=== PATIENT | female | born 1960 | race Two or more races ===

== ENCOUNTER 2016-07-26 14:15 | Inpatient (IN) | payer MEDICARE, OTHER ==
[~2016-07-26] VITALS: Ht 165.1 cm; Wt 59.0 kg
--- NOTE | 2016-07-26 14:57 | Emergency Room Report ---
History of Present Illness General Chief Complaint: Generalized Weakness Source: Patient, EMS, PMD Present Illness HPI 55 YOF BIBEMS from SNF for alleged 30-40lb unintentional weight loss in 1 month. SNF endorses patient refusing to eat. PMD states patient is also refusing to eat. Patient states she eats 2x a day but doesnt get fed in evening. She otherwise denies loss of appetite, abd pain, nausea/vomiting, diarrhea. Per RN, patient has loose yellow stool. Sample collected. Patient not providing additional HPI, flat psych affect. Allergies: Coded Allergies: CODEINE (Verified Allergy, Unknown, 07/26/16) Patient History Past Medical History: DM, HTN, psych hx Past Surgical History: unable to obtain Pertinent Family History: unable to obtain Social History: Denies: alcohol use, drug use, smoking Now: No Immunizations: UTD Reviewed Nursing Documentation: PMH: Agreed, PSxH: Agreed Nursing Documentation-PMH Past Medical History: No History, Except For Hx Hypertension: Yes Hx COPD: Yes Hx Diabetes: Yes History Of Psychiatric Problem: Yes - bipolar schizophrenia Hx Neurological Problems: Yes - dementia Hx Seizures: Yes Review of Systems All Other Systems: negative except mentioned in HPI Physical Exam Vital Signs Date Time Temp Pulse Resp B/P Pulse Ox O2 Delivery O2 Flow Rate FiO2 07/26/16 14:15 98.1 102 14 121/75 97 Room Air Sp02 EP Interpretation: reviewed, normal General Appearance: normal inspection, well appearing, no apparent distress, alert, GCS 15, non-toxic Head: normocephalic, atraumatic Eyes: bilateral eye EOMI, bilateral eye PERRL ENT: normal ENT inspection, hearing grossly normal, normal voice Neck: normal inspection, full range of motion, supple, no bony tend Respiratory: normal inspection, lungs clear, normal breath sounds, no rhonchi, no respiratory distress, no retraction, no accessory muscle use, no wheezing Cardiovascular #1: regular rate, rhythm, no edema Gastrointestinal: normal inspection, normal bowel sounds, non tender, soft, no mass, no guarding, no hernia, no pulsatile mass, no rebound Genitourinary: no CVA tenderness Musculoskeletal: normal inspection, back normal, normal range of motion, Savanna' s Sign negative Neurologic: normal inspection, alert, oriented x3, responsive, report manager III-XII nml as tested, motor strength/tone normal, speech normal Psychiatric: normal inspection, other - flat affect, staring straight ahead Skin: normal inspection, normal color, no rash Medical Decision Making Diagnostic Impression: Primary Impression: Episode of generalized weakness Additional Impressions: Weight loss, non-intentional UTI (urinary tract infection) Qualified Codes: N30.00 - Acute cystitis without hematuria ER Course 55 YO F with alleged 30-40lb weight loss, ?diarrhea. VSS. Afebrile. No focal abd ttp. DDx: colitis, ?Cdiff although unlikely, UTI, PNA PLAN: Labs, CTAP, reassess Likely admission for weakness EKG Diagnostic Results Rate: tachycardiac Rhythm: NSR ST Segments: no acute changes ASA given to the pt in ED: No Rhythm Strip Diag. Results EP Interpretation: yes Rate: 102 Rhythm: NSR, no PVC's, no ectopy Chest X-Ray Diagnostic Results EP Interpretation: Yes Findings: no consolidation, no effusion, no pneumothorax, no acute cardiopulmonary disease Number of Views: 1 Reevaluation Time: 15:38 Last Vital Signs Date Time Temp Pulse Resp B/P Pulse Ox O2 Delivery O2 Flow Rate FiO2 07/26/16 14:15 98.1 102 14 121/75 97 Room Air Status: improved Reevaluation Impression Labs: No leuks. H&H stable. No sig metabolic abnormality. UA + for nitrites CXR: No PNA or acute abnormality seen ECG is NSR, no ischemia A: Will give Ceftriaxone for UTI, as likely source of weakness, decreased appetite, weight loss Endorsed to Dr Morales at 339pm Disposition: ADMITTED INPATIENT Condition: Serious Referrals: RAMONA MORALES (PCP) CARTER WEST M.D. Jul 26, 2016 14:57
[2016-07-26 15:15] VITALS: BP 121/75
[2016-07-26 15:18] LABS: APPEARANCE,URINE CLEAR; KETONES,URINE NEGATIVE (NEGATIVE); LEUKOCYTE ESTERASE ,URINE 3+ (NEGATIVE); NITRITE,URINE POSITIVE (NEGATIVE); PH,URINE 6 (4.5-8.0); PROTEIN,URINE NEGATIVE (NEGATIVE); TROPONIN I < 0.30 ng/mL (<=0.30); UROBILINOGEN,URINE NORMAL MG/DL (0.0-1.0)
[2016-07-26 15:22] LABS: ALANINE AMINOTRANSFERASE 10 U/L (3-33); ALBUMIN/GLOBULIN RATIO 1.4 (1.0-2.7); ANION GAP 14 (5-15); ASPARTATE AMINO TRANSFERASE 13 U/L (5-40); CALCIUM 9.6 mg/dL (8.6-10.2); CARBON DIOXIDE 28 mEQ/L (20-30); CHLORIDE 96 mEQ/L (98-107); CREATININE 0.7 mg/dL (0.5-0.9); GLOMERULAR FILTRATION RATE > 60 mL/min (>60); HEMOLYSIS 25; POTASSIUM 4.2 mEQ/L (3.4-4.9); SODIUM 138 mEQ/L (135-145); TOTAL PROTEIN 7.2 g/dL (6.6-8.7)
[2016-07-26 15:24] LABS: EOSINOPHILS % (AUTO) 0.9 % (0.0-3.0); LYMPHOCYTES % (AUTO) 21.4 % (20.0-45.0); MEAN CORPUSCULAR HEMOGLOBIN 32.4 PG (27.0-31.0); MEAN CORPUSCULAR HGB CONC 34.8 G/DL (32.0-36.0); MEAN CORPUSCULAR VOLUME 93 FL (80-99); MEAN PLATELET VOLUME 6.1 FL (6.5-10.1); NEUTROPHILS % (AUTO) 68.7 % (45.0-75.0); PLATELET COUNT 286 K/UL (150-450); RED BLOOD COUNT 4.87 M/UL (4.20-5.40); WHITE BLOOD COUNT 7.6 K/UL (4.8-10.8)
[2016-07-26] MEDS ORDERED: cefTRIAXone 1 GM in NS 55 ML IVPB SCH (15:30)
[2016-07-26 15:33] LABS: CKMB 1.7 ng/mL (< 3.8)
--- NOTE | 2016-07-26 15:38 | Infectious Diseases Prog Note ---
Assessment/Plan Problems: (1) UTI (urinary tract infection) Assessment & Plan: will send culture and start ceftriaxon empiricaly (2) Diarrhea Assessment & Plan: rule out infectious etiology, will send stool for culture and C.diff toxin, and start metronidazole and ceftriaxone empirically (3) Weight loss, non-intentional Assessment & Plan: recommend TSH check and HIV screening, and dietary consult (4) Episode of generalized weakness Assessment & Plan: suspect due to the above Subjective Allergies: Coded Allergies: CODEINE (Verified Allergy, Unknown, 07/26/16) Objective Vital Signs Last 24 Hour Vital Signs Date Time Temp Pulse Resp B/P Pulse Ox O2 Delivery O2 Flow Rate FiO2 07/26/16 14:15 98.1 102 14 121/75 97 Room Air Height (Feet): 5 Height (Inches): 5.00 Weight (Pounds): 130 Laboratory Tests Test 07/26/16 14:30 White Blood Count 7.6 K/UL (4.8-10.8) Red Blood Count 4.87 M/UL (4.20-5.40) Hemoglobin 15.8 G/DL (12.0-16.0) Hematocrit 45.3 % (37.0-47.0) Mean Corpuscular Volume 93 FL (80-99) Mean Corpuscular Hemoglobin 32.4 PG (27.0-31.0) H Mean Corpuscular Hemoglobin Concent 34.8 G/DL (32.0-36.0) Red Cell Distribution Width 12.0 % (11.6-14.8) Platelet Count 286 K/UL (150-450) Mean Platelet Volume 6.1 FL (6.5-10.1) L Neutrophils (%) (Auto) 68.7 % (45.0-75.0) Lymphocytes (%) (Auto) 21.4 % (20.0-45.0) Monocytes (%) (Auto) 8.0 % (1.0-10.0) Eosinophils (%) (Auto) 0.9 % (0.0-3.0) Basophils (%) (Auto) 1.0 % (0.0-2.0) Urine Color Yellow Urine Appearance Clear Urine pH 6 (4.5-8.0) Urine Specific [place] 1.020 (1.005-1.035) Urine Protein Negative (NEGATIVE) Urine Glucose (UA) Negative (NEGATIVE) Urine Ketones Negative (NEGATIVE) Urine Occult Blood 1+ (NEGATIVE) H Urine Nitrite Positive (NEGATIVE) H Urine Bilirubin Negative (NEGATIVE) Urine Urobilinogen Normal MG/DL (0.0-1.0) Urine Leukocyte Esterase 3+ (NEGATIVE) H Urine RBC Pending Urine WBC Pending Urine Squamous Epithelial Cells Pending Urine Bacteria Pending Sodium Level 138 mEQ/L (135-145) Potassium Level 4.2 mEQ/L (3.4-4.9) Chloride Level 96 mEQ/L (98-107) L Carbon Dioxide Level 28 mEQ/L (20-30) Anion Gap 14 (5-15) Blood Urea Nitrogen 14 mg/dL (7-23) Creatinine 0.7 mg/dL (0.5-0.9) Estimat Glomerular Filtration Rate > 60 mL/min (>60) Glucose Level 153 mg/dL (74-106) H Calcium Level 9.6 mg/dL (8.6-10.2) Total Bilirubin 0.2 mg/dL (0.0-1.2) Aspartate Amino Transf (AST/SGOT) 13 U/L (5-40) Alanine Aminotransferase (ALT/SGPT) 10 U/L (3-33) Alkaline Phosphatase 60 U/L (35-104) Total Creatine Kinase 21 U/L (26-140) L Creatine Kinase MB 1.7 ng/mL (< 3.8) Creatine Kinase MB Relative Index 8.0 Troponin I < 0.30 ng/mL (<=0.30) Total Protein 7.2 g/dL (6.6-8.7) Albumin 4.3 g/dL (3.5-5.2) Globulin 2.9 g/dL Albumin/Globulin Ratio 1.4 (1.0-2.7) Alyssa Blanton M.D. Jul 26, 2016 15:38
[2016-07-26 15:40] LABS: BACTERIA,URINE MANY /HPF; SQUAMOUS EPITHELIAL CELL,UR FEW /LPF (NONE/OCC)
[2016-07-26] MEDS ORDERED: cefTRIAXone 1 GM in NS 55 ML IVPB ONE (15:45)
[2016-07-26] MEDS ORDERED: RISPERDAL2 MG ORAL (15:49)
[2016-07-26] MEDS ORDERED: DEPAKOTE250 MG PO (15:49)
[2016-07-26] MEDS ORDERED: FOLIC ACID1 MG ORAL (15:49)
[2016-07-26] MEDS ORDERED: MULTIVITAMINS1 EAC2 ORAL (15:49)
[2016-07-26] MEDS ORDERED: GLUCAGON W/DILUE1 MG IM (15:49)
[2016-07-26] MEDS ORDERED: METFORMIN HCL500 M1 ORAL (15:49)
[2016-07-26] MEDS ORDERED: LAMICTAL25 MG ORAL (15:49)
[2016-07-26] MEDS ORDERED: NOVOLOG100 UNITS1 SQ (17:25)
[2016-07-26] MEDS ORDERED: CLOTRIMAZOLE15 GM TOPIC (17:25)
--- NOTE | 2016-07-26 18:43 | Wound Care Consultation ---
Wound Assessment Wound Assessment #1: Wound Present on Admission: Yes New Wound: No Status Change of Wound: No Wound Location Body Site Modif: right Wound Location Body Site: buttocks Wound Type: pressure ulcer Saadia Test: Does not Saadia Pressure Ulcer Stage: IV/unstageable Wound Thickness: Full Thickness Wound Length: 3.0 Wound Width: 4.0 Wound Depth: 0.5 Percent of Wound [place]/Red: 100 Wound Drainage Description: Serosanguineous Wound Drainage Amount: Moderate Wound Drainage Odor: None/Absent Tissue Surrounding Wound: Erythemic Wound General Appearance: Reddened, Draining Wound Assessment #2: Wound Number: #2 Wound Present on Admission: Yes New Wound: No Status Change of Wound: No Wound Location Body Site Modif: left, upper Wound Location Body Site: back Wound Type: pressure ulcer Saadia Test: Does not Saadia Pressure Ulcer Stage: deep tissue injury Wound Thickness: Full Thickness Wound Length: 4.0 Wound Width: 4.0 Wound Depth: utd Percent of Wound Purple/Maroon: 100 Wound Drainage Amount: None Wound Drainage Odor: None/Absent Tissue Surrounding Wound: Intact Wound General Appearance: Asymptomatic, Reddened Wound Comment #1 Right buttocks stage IV pressure ulcer. Up on palpation of the affected area , noted a hard oval shaped object on the right buttock. Pt stated there is a device planted for her back problem. #2 Left upper back DTI purple in color Recommendation Right buttock - cleanse with saline apply hydrogel on wound bed cover with calcium alginate cover with bordered gauze daily and PRN soiled/dislodged Left upper back DTI -Local wound care per protocol for DTI -Low air loss overlay mattress -Turn and reposition -Keep clean and dry -Optimize nutrition -Assess and f/u accordingly for any changes ISMAEL URBINA RN Jul 26, 2016 18:43
[2016-07-26 19:00] VITALS: BP 152/87
[2016-07-26] MEDS ORDERED: Mylanta II UD 30ml ORAL PRN (19:15)
[2016-07-26] MEDS ORDERED: LORazepam Inj 2mg/ml 1ml IV PRN (19:15)
[2016-07-26] MEDS ORDERED: Zolpidem 5mg tab ORAL PRN (19:15)
[2016-07-26] MEDS ORDERED: Miralax 17gm pkt ORAL PRN (19:15)
--- NOTE | 2016-07-26 19:15 | Consultation ---
History of Present Illness General Date patient seen: Jul 26, 2016 Chief Complaint: Generalized Weakness Present Illness HPI 55 with hx of Dementia, seizures, DM, COPd,long term resident brought in for alleged 30-40lb unintentional weight loss in 1 month. It is reported that pt refusing to eat. Patient states she eats 2x a day but doesnt get fed in evening. She otherwise denies loss of appetite, abd pain, nausea/vomiting, diarrhea. She is admitted for further evaluation and intervention. she had a cloudy urine, it was thought that she had urosepsis. Allergies: Coded Allergies: CODEINE (Verified Allergy, Unknown, 07/26/16) Medication History Scheduled Clotrimazole* (Lotrimin*), 1 APPLIC TOPIC DAILY, (Reported) Divalproex Sodium* (Depakote*), 750 MG PO TWICE A DAY, (Reported) Folic Acid* (Folic Acid*), 1 MG ORAL DAILY, (Reported) Insulin Aspart (Novolog Flexpen), SQ AC+HS, (Reported) Lamotrigine* (Lamictal*), 25 MG ORAL TWICE A DAY, (Reported) Metformin Hcl* (Metformin Hcl*), 500 MG ORAL DAILY, (Reported) Multivitamins* (Multivitamins*), 1 TAB ORAL DAILY, (Reported) Risperidone* (Risperdal*), 3 MG ORAL TWICE A DAY, (Reported) Scheduled PRN Glucagon (Glucagen), 1 MG IM for hypoglycemic, (Reported) Patient History Healthcare decision maker Resuscitation status Advanced Directive on File Past Medical/Surgical History Past Medical/Surgical History: (1) prison pneumonia (2) Depression (3) Diabetic polyneuropathy Review of Systems All Other Systems: negative except mentioned in HPI Physical Exam Lines, tubes and drains: peripheral HEENT: normocephalic Neck: non-tender, supple Respiratory/Chest: chest wall non-tender, lungs clear Cardiovascular/Chest: normal peripheral pulses, normal rate Abdomen: normal bowel sounds, non tender Last 24 Hour Vital Signs Date Time Temp Pulse Resp B/P Pulse Ox O2 Delivery O2 Flow Rate FiO2 07/26/16 17:11 95 11 110/73 98 Room Air 07/26/16 15:15 97.2 103 15 121/75 98 Room Air 07/26/16 14:15 98.1 102 14 121/75 97 Room Air Laboratory Tests Test 07/26/16 14:30 White Blood Count 7.6 K/UL (4.8-10.8) Red Blood Count 4.87 M/UL (4.20-5.40) Hemoglobin 15.8 G/DL (12.0-16.0) Hematocrit 45.3 % (37.0-47.0) Mean Corpuscular Volume 93 FL (80-99) Mean Corpuscular Hemoglobin 32.4 PG (27.0-31.0) H Mean Corpuscular Hemoglobin Concent 34.8 G/DL (32.0-36.0) Red Cell Distribution Width 12.0 % (11.6-14.8) Platelet Count 286 K/UL (150-450) Mean Platelet Volume 6.1 FL (6.5-10.1) L Neutrophils (%) (Auto) 68.7 % (45.0-75.0) Lymphocytes (%) (Auto) 21.4 % (20.0-45.0) Monocytes (%) (Auto) 8.0 % (1.0-10.0) Eosinophils (%) (Auto) 0.9 % (0.0-3.0) Basophils (%) (Auto) 1.0 % (0.0-2.0) Urine Color Yellow Urine Appearance Clear Urine pH 6 (4.5-8.0) Urine Specific [place] 1.020 (1.005-1.035) Urine Protein Negative (NEGATIVE) Urine Glucose (UA) Negative (NEGATIVE) Urine Ketones Negative (NEGATIVE) Urine Occult Blood 1+ (NEGATIVE) H Urine Nitrite Positive (NEGATIVE) H Urine Bilirubin Negative (NEGATIVE) Urine Urobilinogen Normal MG/DL (0.0-1.0) Urine Leukocyte Esterase 3+ (NEGATIVE) H Urine RBC 2-4 /HPF (0 - 2) H Urine WBC 5-10 /HPF (0 - 2) H Urine Squamous Epithelial Cells Few /LPF (NONE/OCC) Urine Bacteria Many /HPF (NONE) H Sodium Level 138 mEQ/L (135-145) Potassium Level 4.2 mEQ/L (3.4-4.9) Chloride Level 96 mEQ/L (98-107) L Carbon Dioxide Level 28 mEQ/L (20-30) Anion Gap 14 (5-15) Blood Urea Nitrogen 14 mg/dL (7-23) Creatinine 0.7 mg/dL (0.5-0.9) Estimat Glomerular Filtration Rate > 60 mL/min (>60) Glucose Level 153 mg/dL (74-106) H Calcium Level 9.6 mg/dL (8.6-10.2) Total Bilirubin 0.2 mg/dL (0.0-1.2) Aspartate Amino Transf (AST/SGOT) 13 U/L (5-40) Alanine Aminotransferase (ALT/SGPT) 10 U/L (3-33) Alkaline Phosphatase 60 U/L (35-104) Total Creatine Kinase 21 U/L (26-140) L Creatine Kinase MB 1.7 ng/mL (< 3.8) Creatine Kinase MB Relative Index 8.0 Troponin I < 0.30 ng/mL (<=0.30) Total Protein 7.2 g/dL (6.6-8.7) Albumin 4.3 g/dL (3.5-5.2) Globulin 2.9 g/dL Albumin/Globulin Ratio 1.4 (1.0-2.7) Height (Feet): 5 Height (Inches): 5.00 Weight (Pounds): 130 Medications Current Medications Medications (Trade) Dose Ordered Sig/Rene Route PRN Reason Start Time Stop Time Status Last Admin Dose Admin Ceftriaxone Sodium/Sodium Chloride (Rocephin/Sodium Chloride) 55 ml @ 110 mls/hr Q24HRS IVPB 07/27/16 15:00 08/03/16 14:59 Metronidazole 500 mg 500 mg Q6HR ORAL 07/26/16 18:00 08/02/16 17:59 Assessment/Plan Problem List: (1) UTI (urinary tract infection) ICD Codes: N39.0 - Urinary tract infection, site not specified SNOMED: 80235204 Qualifiers: Qualified Codes: N30.00 - Acute cystitis without hematuria (2) Episode of generalized weakness ICD Codes: R53.1 - Weakness SNOMED: 25999028 (3) Diabetic polyneuropathy (4) nonambulatory, r/o spinal stenosis, r/o psychosomatic d/o (5) prison pneumonia ICD Codes: J18.9 - Pneumonia, unspecified organism SNOMED: 116881801 (6) Depression ICD Codes: F32.9 - Major depressive disorder, single episode, unspecified SNOMED: 61057661 Assessment/Plan IV fluids IV antibiotics check cultures calorie count RC PADILLA Jul 26, 2016 19:15
[2016-07-26] MEDS: metroNIDAZOLE 500mg tab ORAL SCH (19:16)
[2016-07-26 20:00] VITALS: BP 140/82
[2016-07-26] MEDS ORDERED: Morphine Sulfate 2mg/ml Inj IVP PRN (20:15)
[2016-07-26] MEDS: Heparin 5000 units/ml inj SUBQ SCH (20:19)
[2016-07-26] MEDS: NovoLOG Insulin Flexpen SUBQ SCH (21:00)
--- NOTE | 2016-07-26 21:27 | Consultation ---
DATE OF CONSULTATION: INFECTIOUS DISEASE CONSULTATION CONSULTING PHYSICIAN: Alyssa Blanton M.D. REQUESTING PHYSICIAN: Sergio Negron D.O. REASON FOR CONSULTATION: Urinary tract infection and diarrhea. Recommendation for antibiotics therapy. HISTORY OF PRESENT ILLNESS: The patient is a 55-year-old female with past medical history of diabetes, hypertension, and psych disorder, who was sent to [facility] for diarrhea and an intentional weight loss of about 30 pounds. Over the last couple of weeks, the patient has been refusing to eat. She denied any abdominal pain, nausea, or vomiting. Denied any loss of appetite, but she had diarrhea and loose stools. No blood or hematochezia. She denied any other symptoms. The patient had urine analysis in the emergency room, which showed evidence of infection, so I was consulted by the primary care physician for antibiotics recommendation and further management. As of note, the patient is a poor historian and could not provide good history. History was mainly obtained from the medical record and partially from the patient. PAST MEDICAL HISTORY: Significant for diabetes, hypertension, and psych disorder. PAST SURGICAL HISTORY: Negative. MEDICATIONS: She is on diabetes and hypertension medications. For the list, please refer to the MAR. ALLERGIES: She is allergic to codeine. SOCIAL HISTORY: The patient lives at rehabilitation. Denied using any drugs, tobacco, or alcohol. FAMILY HISTORY: Unable to obtain. REVIEW OF SYSTEMS: A 12-point system reviewed were all negative apart from the one I mentioned above in my History and Physical. PHYSICAL EXAMINATION: VITAL SIGNS: Temperature 98.1 degrees, pulse 102, respirations 14, blood pressure 121/75, and pulse oximetry 97% on room air. GENERAL: A middle-aged female, lying in bed, alert, awake, lethargic, and not in distress. HEENT: Normocephalic and atraumatic. Pupils are both reactive to light. Pale sclera. Dry oral mucosa. No exudate. NECK: Supple. No lymphadenopathy. CARDIOVASCULAR: Regular rate and rhythm. No murmur. No gallop. LUNGS: Clear bilaterally. No wheezing. No rhonchi. ABDOMEN: Soft, nontender, and nondistended. Positive bowel sounds. No hepatosplenomegaly or ascites. EXTREMITIES: No edema. No cyanosis. LABORATORY DATA: CBC showed white count of 7.6, hemoglobin of 15.8, and platelet count of 286,000. BUN of 14 and creatinine of 0.7. AST of 15, ALT of 10, and alkaline phosphatase of 60. Urine analysis was positive for nitrate and +3 leukocyte esterase with WBC and bacteria pending. ASSESSMENT AND PLAN: 1. Urinary tract infection. The patient will be started empirically on ceftriaxone. We will send urine for culture. Await results. 2. Diarrhea, rule out infectious etiology. We will send stool for culture and Clostridium difficile toxin. We will start Flagyl and ceftriaxone empirically. If infectious workup remain negative, recommend colonoscopy and GI consult. 3. Weight loss, unintentional. We will screen for human immunodeficiency virus and syphilis. Recommend TSH check and dietary consultation. 4. Generalized weakness, suspect due to the above. Consult PT or OT. 5. Diabetes. Recommend tight glycemic control to keep blood glucose between 80 to 120. Alyssa Blanton M.D. DR: CHRISTINA JOB#: [id number] CC:
--- NOTE | 2016-07-26 21:27 | History and Physical Report ---
DATE OF ADMISSION: 07/26/2016 Time: 3:00 p.m. CONSULTANTS: 1. Alyssa Blanton M.D. 2. Luke Waller M.D. 3. Ashley Ch M.D. 4. Truong Mckeon M.D. 5. Hay Stewart M.D. CHIEF COMPLAINT: Weakness and failure to thrive. HISTORY OF PRESENT ILLNESS: The patient is a 55-year-old female from [facility] presented with increased weakness for two and weight loss, failure to thrive, and encephalopathy. Currently, calm, confused, seen in bed, and not talking much. PAST MEDICAL HISTORY: Encephalopathy and weakness. PAST SURGICAL HISTORY: Unknown. MEDICATIONS: We will obtain shortly. ALLERGIES: Codeine. SOCIAL HISTORY: No smoking or alcohol. No intravenous drug abuse. FAMILY HISTORY: Noncontributory. REVIEW OF SYSTEMS: Slight nausea. No vomiting. No diarrhea. No chest pain or shortness of breath. PHYSICAL EXAMINATION: GENERAL: Lethargic in bed, oriented x1, in no acute distress. VITAL SIGNS: Temperature 98 degrees, pulse 102, respiration 14, and blood pressure 121/75. CARDIOVASCULAR: No murmur. LUNGS: Poor exchange. ABDOMEN: Positive bowel sounds. Nontender and nondistended. EXTREMITIES: No cyanosis, clubbing or edema. NEUROLOGIC: The patient moves all extremities, but slightly weak. LABORATORY DATA: Laboratory exams are pending. ASSESSMENT: 1. Weakness. 2. Failure to thrive. 3. Encephalopathy. 4. Weight loss. PLAN: Continue premedications. Check labs count if available. OT, PT, and dietary evaluation. CBC and BMP in the morning. IV fluids. Dr. Blanton, Dr. Waller, Dr. Ch, Dr. Mckeon, and Dr. Stewart to consult. Resume home medications. We will continue to follow this patient. Sergio Negron D.O. DR: Rafy JOB#: [id number] CC:
[2016-07-27] VITALS: BP 122/82
[2016-07-27] MEDS: metroNIDAZOLE 500mg tab ORAL SCH ×4 (00:16→18:17)
[2016-07-27 04:00] VITALS: BP 128/74
[2016-07-27] MEDS: NovoLOG Insulin Flexpen SUBQ SCH ×4 (05:52→21:43)
[2016-07-27 07:33] LABS: BASOPHILS % (AUTO) 0.7 % (0.0-2.0); EOSINOPHILS % (AUTO) 1.9 % (0.0-3.0); LYMPHOCYTES % (AUTO) 34.1 % (20.0-45.0); MEAN CORPUSCULAR HEMOGLOBIN 30.5 PG (27.0-31.0); MEAN CORPUSCULAR HGB CONC 33.5 G/DL (32.0-36.0); MEAN CORPUSCULAR VOLUME 91 FL (80-99); MEAN PLATELET VOLUME 5.6 FL (6.5-10.1); MONOCYTES % (AUTO) 8.9 % (1.0-10.0); NEUTROPHILS % (AUTO) 54.4 % (45.0-75.0); PLATELET COUNT 269 K/UL (150-450); RED BLOOD COUNT 4.69 M/UL (4.20-5.40); RED CELL DISTRIBUTION WIDTH 11.7 % (11.6-14.8); WHITE BLOOD COUNT 7.6 K/UL (4.8-10.8)
[2016-07-27 07:52] LABS: HEMOGLOBIN A1C 5.6 % (< 6.0)
[2016-07-27 07:57] LABS: ALANINE AMINOTRANSFERASE 9 U/L (3-33); ALBUMIN/GLOBULIN RATIO 1.5 (1.0-2.7); ANION GAP 14 (5-15); ASPARTATE AMINO TRANSFERASE 10 U/L (5-40); CALCIUM 9.5 mg/dL (8.6-10.2); CARBON DIOXIDE 28 mEQ/L (20-30); CHLORIDE 99 mEQ/L (98-107); CHOLESTEROL 167 mg/dL (< 200); CHOLESTEROL/HDL RATIO 2.8 (3.3-4.4); CREATININE 0.5 mg/dL (0.5-0.9); GLOMERULAR FILTRATION RATE > 60 mL/min (>60); HEMOLYSIS 4; LDL CHOLESTEROL (CALC.) 86 mg/dL (60-99); POTASSIUM 3.8 mEQ/L (3.4-4.9); SODIUM 141 mEQ/L (135-145); TOTAL PROTEIN 6.1 g/dL (6.6-8.7)
[2016-07-27 08:00] VITALS: BP 113/78
[2016-07-27] MEDS: Heparin 5000 units/ml inj SUBQ SCH ×2 (09:29→21:44)
[2016-07-27 12:00] VITALS: BP 108/69
--- NOTE | 2016-07-27 12:39 | Neurology Progress Note ---
Objective Physical Exam Last Vital Signs Date Time Temp Pulse Resp B/P Pulse Ox O2 Delivery O2 Flow Rate FiO2 07/27/16 08:00 97.0 85 18 113/78 98 Room Air Laboratory Tests Test 07/26/16 14:30 07/27/16 05:15 White Blood Count 7.6 K/UL (4.8-10.8) 7.6 K/UL (4.8-10.8) Red Blood Count 4.87 M/UL (4.20-5.40) 4.69 M/UL (4.20-5.40) Hemoglobin 15.8 G/DL (12.0-16.0) 14.3 G/DL (12.0-16.0) Hematocrit 45.3 % (37.0-47.0) 42.7 % (37.0-47.0) Mean Corpuscular Volume 93 FL (80-99) 91 FL (80-99) Mean Corpuscular Hemoglobin 32.4 PG (27.0-31.0) H 30.5 PG (27.0-31.0) Mean Corpuscular Hemoglobin Concent 34.8 G/DL (32.0-36.0) 33.5 G/DL (32.0-36.0) Red Cell Distribution Width 12.0 % (11.6-14.8) 11.7 % (11.6-14.8) Platelet Count 286 K/UL (150-450) 269 K/UL (150-450) Mean Platelet Volume 6.1 FL (6.5-10.1) L 5.6 FL (6.5-10.1) L Neutrophils (%) (Auto) 68.7 % (45.0-75.0) 54.4 % (45.0-75.0) Lymphocytes (%) (Auto) 21.4 % (20.0-45.0) 34.1 % (20.0-45.0) Monocytes (%) (Auto) 8.0 % (1.0-10.0) 8.9 % (1.0-10.0) Eosinophils (%) (Auto) 0.9 % (0.0-3.0) 1.9 % (0.0-3.0) Basophils (%) (Auto) 1.0 % (0.0-2.0) 0.7 % (0.0-2.0) Urine Color Yellow Urine Appearance Clear Urine pH 6 (4.5-8.0) Urine Specific [place] 1.020 (1.005-1.035) Urine Protein Negative (NEGATIVE) Urine Glucose (UA) Negative (NEGATIVE) Urine Ketones Negative (NEGATIVE) Urine Occult Blood 1+ (NEGATIVE) H Urine Nitrite Positive (NEGATIVE) H Urine Bilirubin Negative (NEGATIVE) Urine Urobilinogen Normal MG/DL (0.0-1.0) Urine Leukocyte Esterase 3+ (NEGATIVE) H Urine RBC 2-4 /HPF (0 - 2) H Urine WBC 5-10 /HPF (0 - 2) H Urine Squamous Epithelial Cells Few /LPF (NONE/OCC) Urine Bacteria Many /HPF (NONE) H Sodium Level 138 mEQ/L (135-145) 141 mEQ/L (135-145) Potassium Level 4.2 mEQ/L (3.4-4.9) 3.8 mEQ/L (3.4-4.9) Chloride Level 96 mEQ/L (98-107) L 99 mEQ/L (98-107) Carbon Dioxide Level 28 mEQ/L (20-30) 28 mEQ/L (20-30) Anion Gap 14 (5-15) 14 (5-15) Blood Urea Nitrogen 14 mg/dL (7-23) 10 mg/dL (7-23) Creatinine 0.7 mg/dL (0.5-0.9) 0.5 mg/dL (0.5-0.9) Estimat Glomerular Filtration Rate > 60 mL/min (>60) > 60 mL/min (>60) Glucose Level 153 mg/dL (74-106) H 107 mg/dL (74-106) H Calcium Level 9.6 mg/dL (8.6-10.2) 9.5 mg/dL (8.6-10.2) Total Bilirubin 0.2 mg/dL (0.0-1.2) 0.3 mg/dL (0.0-1.2) Aspartate Amino Transf (AST/SGOT) 13 U/L (5-40) 10 U/L (5-40) Alanine Aminotransferase (ALT/SGPT) 10 U/L (3-33) 9 U/L (3-33) Alkaline Phosphatase 60 U/L (35-104) 51 U/L (35-104) Total Creatine Kinase 21 U/L (26-140) L Creatine Kinase MB 1.7 ng/mL (< 3.8) Creatine Kinase MB Relative Index 8.0 Troponin I < 0.30 ng/mL (<=0.30) Total Protein 7.2 g/dL (6.6-8.7) 6.1 g/dL (6.6-8.7) L Albumin 4.3 g/dL (3.5-5.2) 3.7 g/dL (3.5-5.2) Globulin 2.9 g/dL 2.4 g/dL Albumin/Globulin Ratio 1.4 (1.0-2.7) 1.5 (1.0-2.7) Hemoglobin A1c 5.6 % (< 6.0) Triglycerides Level 107 mg/dL (< 150) Cholesterol Level 167 mg/dL (< 200) LDL Cholesterol 86 mg/dL (60-99) HDL Cholesterol 60 mg/dL (> 60) Cholesterol/HDL Ratio 2.8 (3.3-4.4) L Thyroid Stimulating Hormone (TSH) 2.550 uIU/mL (0.300-4.500) Impression/Recommendations Problems: (1) nonambulatory, r/o spinal stenosis, r/o psychosomatic d/o (2) Action tremor (3) Diabetic polyneuropathy Status: unchanged - #[id number] Recommendations #[id number] ADRIANA BERUMEN Jul 27, 2016 12:39
--- NOTE | 2016-07-27 13:23 | General Progress Note ---
Assessment/Plan Problem List: (1) FTT (failure to thrive) in adult ICD Codes: R62.7 - Adult failure to thrive SNOMED: 828507255 (2) UTI (urinary tract infection) ICD Codes: N39.0 - Urinary tract infection, site not specified SNOMED: 38140708 Qualifiers: Qualified Codes: N30.00 - Acute cystitis without hematuria (3) Episode of generalized weakness ICD Codes: R53.1 - Weakness SNOMED: 92138007 (4) Weight loss, non-intentional ICD Codes: R63.4 - Abnormal weight loss SNOMED: 880512344 Status: stable, progressing, tolerating diet Assessment/Plan ot pt diet psyc tx abx cbc bmp am Subjective Constitutional: Reports: weakness Allergies: Coded Allergies: CODEINE (Verified Allergy, Unknown, 07/26/16) All Systems: reviewed and negative except above Subjective calm in bed weak Objective Last 24 Hour Vital Signs Date Time Temp Pulse Resp B/P Pulse Ox O2 Delivery O2 Flow Rate FiO2 07/27/16 08:00 97.0 85 18 113/78 98 Room Air 07/27/16 04:00 96.6 79 20 128/74 97 Room Air 07/27/16 00:00 97.2 87 20 122/82 98 Room Air 07/26/16 20:00 98.2 98 20 140/82 98 Room Air 07/26/16 19:00 97.3 100 20 152/87 98 Room Air 07/26/16 17:11 95 11 110/73 98 Room Air 07/26/16 15:15 97.2 103 15 121/75 98 Room Air 07/26/16 14:15 98.1 102 14 121/75 97 Room Air Intake and Output 07/26/16 07/27/16 19:00 07:00 Intake Total 355 ml 240 ml Output Total 900 ml Balance 355 ml -660 ml Intake Oral 300 ml 240 ml IV Total 55 ml Output Urine Total 900 ml # Bowel Movements 1 2 Laboratory Tests 07/26/16 14:30: White Blood Count 7.6, Red Blood Count 4.87, Hemoglobin 15.8, Hematocrit 45.3, Mean Corpuscular Volume 93, Mean Corpuscular Hemoglobin 32.4H, Mean Corpuscular Hemoglobin Concent 34.8, Red Cell Distribution Width 12.0, Platelet Count 286, Mean Platelet Volume 6.1L, Neutrophils (%) (Auto) 68.7, Lymphocytes (%) (Auto) 21.4, Monocytes (%) (Auto) 8.0, Eosinophils (%) (Auto) 0.9, Basophils (%) (Auto ) 1.0, Urine Color Yellow, Urine Appearance Clear, Urine pH 6, Urine Specific Logan 1.020, Urine Protein Negative, Urine Glucose (UA) Negative, Urine Ketones Negative, Urine Occult Blood 1+H, Urine Nitrite PositiveH, Urine Bilirubin Negative, Urine Urobilinogen Normal, Urine Leukocyte Esterase 3+H, Urine RBC 2-4H, Urine WBC 5-10H, Urine Squamous Epithelial Cells Few, Urine Bacteria ManyH, Sodium Level 138, Potassium Level 4.2, Chloride Level 96L, Carbon Dioxide Level 28, Anion Gap 14, Blood Urea Nitrogen 14, Creatinine 0.7, Estimat Glomerular Filtration Rate > 60, Glucose Level 153H, Calcium Level 9.6, Total Bilirubin 0.2, Aspartate Amino Transf (AST/SGOT) 13, Alanine Aminotransferase (ALT/SGPT) 10, Alkaline Phosphatase 60, Total Creatine Kinase 21L, Creatine Kinase MB 1.7, Creatine Kinase MB Relative Index 8.0, Troponin I < 0.30, Total Protein 7.2, Albumin 4.3, Globulin 2.9, Albumin/Globulin Ratio 1.4 07/27/16 05:15: White Blood Count 7.6, Red Blood Count 4.69, Hemoglobin 14.3, Hematocrit 42.7, Mean Corpuscular Volume 91, Mean Corpuscular Hemoglobin 30.5, Mean Corpuscular Hemoglobin Concent 33.5, Red Cell Distribution Width 11.7, Platelet Count 269, Mean Platelet Volume 5.6L, Neutrophils (%) (Auto) 54.4, Lymphocytes (%) (Auto) 34.1, Monocytes (%) (Auto) 8.9, Eosinophils (%) (Auto) 1.9, Basophils (%) (Auto ) 0.7, Sodium Level 141, Potassium Level 3.8, Chloride Level 99, Carbon Dioxide Level 28, Anion Gap 14, Blood Urea Nitrogen 10, Creatinine 0.5, Estimat Glomerular Filtration Rate > 60, Glucose Level 107H, Calcium Level 9.5, Total Bilirubin 0.3, Aspartate Amino Transf (AST/SGOT) 10, Alanine Aminotransferase ( ALT/SGPT) 9, Alkaline Phosphatase 51, Total Protein 6.1L, Albumin 3.7, Globulin 2.4, Albumin/Globulin Ratio 1.5, Hemoglobin A1c 5.6, Triglycerides Level 107, Cholesterol Level 167, LDL Cholesterol 86, HDL Cholesterol 60, Cholesterol/HDL Ratio 2.8L, Thyroid Stimulating Hormone (TSH) 2.550 Height (Feet): 5 Height (Inches): 5.00 Weight (Pounds): 130 General Appearance: lethargic EENT: normal ENT inspection Neck: normal alignment Cardiovascular: normal peripheral pulses, normal rate, regular rhythm Respiratory/Chest: chest wall non-tender, lungs clear, normal breath sounds Abdomen: normal bowel sounds, non tender, soft Extremities: normal inspection Edema: no edema noted Arm (L), no edema noted Arm (R), no edema noted Leg (L), no edema noted Leg (R), no edema noted Pedal (L), no edema noted Pedal (R), no edema noted Generalized Neurologic: responsive, motor weakness Skin: normal pigmentation, warm/dry RAMONA MORALES Jul 27, 2016 13:23
--- NOTE | 2016-07-27 13:45 | Diagnostic Imaging Report ---
Indication: SOB Technique: One view of the chest Comparison: none Findings: Lungs and pleural spaces are clear. Heart size is normal. Impression: No acute process
[2016-07-27] MEDS ORDERED: cefTRIAXone 1 GM in NS 55 ML IVPB SCH (15:00)
--- NOTE | 2016-07-27 15:41 | Diagnostic Imaging Report ---
Indications: Back pain Technique: Spiral acquisitions obtained through the lumbar spine. Multiplanar reconstructions were generated. No IV contrast utilized. Total dose length product 724 mGycm. CTDIvol(s) 26 mGy Comparison: None Findings: Bony alignment is normal. No acute fractures or dislocations. The vertebral body heights are preserved. There is an intrathecal infusion pump, tubing entering the spinal canal at the T12-L1 level. At T12-L1 and L1-L2, there is bilateral facet degeneration. There is mild irregularity of the anterior inferior endplates at L1-2, as well as normal vacuum formation. The disc spaces are preserved. At L2-3 there is mild circumferential annular bulge, which does not appear to safely narrow the spinal canal or the neural foramina. There is bilateral facet degeneration at this level. The disc space is preserved. At L3-4, there is facet degeneration on the right. There is minimal posterior disc bulge and osteophyte complex which does not appear to significant compromise the spinal canal or neural foramina. The disc space is preserved. At L4-5, there is degenerative disc narrowing. There is considerable endplate irregularity on both sides of the disc. There is considerable subchondral sclerosis. No significant disc bulge or protrusion. There is mild narrowing of the right neural foramen due to facet hypertrophy. There is bilateral facet degeneration. At L5-S1, there is degenerative disc narrowing. There is endplate irregularity on both sides of this, particularly on L5-5, with a small Schmorl's node present. There is also some vacuum formation. There is posterior disc bulge/osteophyte complex which does not appear significantly compromise the spinal canal. There is mild narrowing of the right neural foramen due to facet hypertrophy. There is mild bilateral facet degeneration. The included extraspinal soft tissues are remarkable for calcifications within the right kidney probably represent nonobstructing is intrarenal calculi. Impression: No acute bony trauma Degenerative changes, as detailed on a level by level basis above Intrathecal pain pump noted Nonobstructing right renal calculi essentially noted The CT scanner at [facility] is accredited by the [employer] and the scans are performed using protocols designed to limit radiation exposure to as low as reasonably achievable to attain images of sufficient resolution adequate for diagnostic evaluation.
[2016-07-27 16:00] VITALS: BP 105/77
--- NOTE | 2016-07-27 17:29 | Infectious Diseases Prog Note ---
Assessment/Plan Problems: (1) UTI (urinary tract infection) Assessment & Plan: with gram negative rods , continue ceftriaxone empirically for now (2) Diarrhea Assessment & Plan: rule out infectious etiology, stool for culture and C.diff toxin are pending , continue metronidazole and ceftriaxone empirically for now until results are obtained. (3) Weight loss, non-intentional Assessment & Plan: recommend TSH check and HIV screening, and dietary consult (4) Episode of generalized weakness Assessment & Plan: suspect due to the above (5) Depression Assessment & Plan: recommend psych consult. Subjective Constitutional: Denies: anorexia, chills, drenching sweats, fatigue, fever, no symptoms, other HEENT: Denies: congestion, coryza, dysphagia, hearing change, no symptoms, other, visual change Respiratory: Denies: dry cough, no symptoms, other, productive cough, shortness of breath Breasts: Denies: discharge, no symptoms, other, swelling, tenderness Cardiovascular: Denies: chest pain, dyspnea on exertion, no symptoms, other, palpitations Gastrointestinal/Abdominal: Denies: bloating, blood in stool, constipation, diarrhea, nausea, no symptoms, other, vomiting Genitourinary: Denies: dysuria, frequency, hematuria, last menstrual period, no symptoms, nocturia, other, vaginal bleed/discharge Neurologic: Denies: confusion, headache, no symptoms, numbness, other, weakness Psychiatric: Reports: depression Skin: Denies: no symptoms, other, rash, ulcer Allergies: Coded Allergies: CODEINE (Verified Allergy, Unknown, 07/26/16) Objective Vital Signs Last 24 Hour Vital Signs Date Time Temp Pulse Resp B/P Pulse Ox O2 Delivery O2 Flow Rate FiO2 07/27/16 16:00 97.3 81 20 105/77 98 Room Air 07/27/16 12:00 97.9 101 18 108/69 96 Room Air 07/27/16 08:00 97.0 85 18 113/78 98 Room Air 07/27/16 04:00 96.6 79 20 128/74 97 Room Air 07/27/16 00:00 97.2 87 20 122/82 98 Room Air 07/26/16 20:00 98.2 98 20 140/82 98 Room Air 07/26/16 19:00 97.3 100 20 152/87 98 Room Air 07/26/16 17:11 95 11 110/73 98 Room Air Height (Feet): 5 Height (Inches): 5.00 Weight (Pounds): 130 General Appearance: WD/WN, no acute distress HEENT: normocephalic, atraumatic, anicteric, mucous membranes moist, PERRL Respiratory/Chest: chest wall non-tender, lungs clear, normal breath sounds, no respiratory distress, no accessory muscle use Cardiovascular: normal peripheral pulses, normal rate, regular rhythm, no gallop/murmur, no JVD Abdomen: normal bowel sounds, soft, non tender, no organomegaly, non distended , no mass Extremities: no cyanosis, no clubbing Skin: no rash, no lesions, no ulcers Microbiology Date/Time Source Procedure Growth Status 07/26/16 14:30 Urine,Clean Catch Urine Culture - Preliminary Gram Negative Bacillus 1 Resulted Laboratory Tests Test 07/27/16 05:15 White Blood Count 7.6 K/UL (4.8-10.8) Red Blood Count 4.69 M/UL (4.20-5.40) Hemoglobin 14.3 G/DL (12.0-16.0) Hematocrit 42.7 % (37.0-47.0) Mean Corpuscular Volume 91 FL (80-99) Mean Corpuscular Hemoglobin 30.5 PG (27.0-31.0) Mean Corpuscular Hemoglobin Concent 33.5 G/DL (32.0-36.0) Red Cell Distribution Width 11.7 % (11.6-14.8) Platelet Count 269 K/UL (150-450) Mean Platelet Volume 5.6 FL (6.5-10.1) L Neutrophils (%) (Auto) 54.4 % (45.0-75.0) Lymphocytes (%) (Auto) 34.1 % (20.0-45.0) Monocytes (%) (Auto) 8.9 % (1.0-10.0) Eosinophils (%) (Auto) 1.9 % (0.0-3.0) Basophils (%) (Auto) 0.7 % (0.0-2.0) Sodium Level 141 mEQ/L (135-145) Potassium Level 3.8 mEQ/L (3.4-4.9) Chloride Level 99 mEQ/L (98-107) Carbon Dioxide Level 28 mEQ/L (20-30) Anion Gap 14 (5-15) Blood Urea Nitrogen 10 mg/dL (7-23) Creatinine 0.5 mg/dL (0.5-0.9) Estimat Glomerular Filtration Rate > 60 mL/min (>60) Glucose Level 107 mg/dL (74-106) H Hemoglobin A1c 5.6 % (< 6.0) Calcium Level 9.5 mg/dL (8.6-10.2) Total Bilirubin 0.3 mg/dL (0.0-1.2) Aspartate Amino Transf (AST/SGOT) 10 U/L (5-40) Alanine Aminotransferase (ALT/SGPT) 9 U/L (3-33) Alkaline Phosphatase 51 U/L (35-104) Total Protein 6.1 g/dL (6.6-8.7) L Albumin 3.7 g/dL (3.5-5.2) Globulin 2.4 g/dL Albumin/Globulin Ratio 1.5 (1.0-2.7) Triglycerides Level 107 mg/dL (< 150) Cholesterol Level 167 mg/dL (< 200) LDL Cholesterol 86 mg/dL (60-99) HDL Cholesterol 60 mg/dL (> 60) Cholesterol/HDL Ratio 2.8 (3.3-4.4) L Thyroid Stimulating Hormone (TSH) 2.550 uIU/mL (0.300-4.500) Current Medications Medications (Trade) Dose Ordered Sig/Rene Route PRN Reason Start Time Stop Time Status Last Admin Dose Admin Acetaminophen (Tylenol) 650 mg Q4H PRN ORAL fever 07/26/16 19:15 08/25/16 19:14 Al Hydroxide/Mg Hydroxide (Mylanta II) 30 ml Q6H PRN ORAL dyspepsia 07/26/16 19:15 08/25/16 19:14 Ceftriaxone Sodium/Sodium Chloride (Rocephin/Sodium Chloride) 55 ml @ 110 mls/hr Q24HRS IVPB 07/27/16 15:00 08/03/16 14:59 Dextrose (Dextrose 50%) STAT PRN IV Hypoglycemia 07/26/16 19:15 08/25/16 19:14 Divalproex Sodium (Depakote) 750 mg Q12H ORAL 07/26/16 21:00 08/25/16 20:59 07/27/16 09:28 Heparin Sodium (Porcine) (Heparin 5000 units/ml) 5,000 units EVERY 12 HOURS SUBQ 07/26/16 21:00 08/25/16 20:59 07/27/16 09:29 Insulin Aspart (NovoLOG) BEFORE MEALS AND HS SUBQ 07/26/16 21:00 08/25/16 20:59 07/27/16 12:14 Lamotrigine (LaMICtal) 25 mg TWICE A DAY ORAL 07/26/16 21:00 08/25/16 20:59 07/27/16 09:28 Lorazepam (Ativan 2mg/ml 1ml) 0.5 mg Q4H PRN IV For Anxiety 07/26/16 19:15 08/02/16 19:14 Metronidazole 500 mg 500 mg Q6HR ORAL 07/26/16 18:00 08/02/16 17:59 07/27/16 12:15 Morphine Sulfate (Morphine Sulfate) 1 mg Q4H PRN IVP For Pain 07/26/16 20:15 08/02/16 20:14 Ondansetron HCl (Zofran) 4 mg Q6H PRN IVP Nausea & Vomiting 07/26/16 19:15 08/25/16 19:14 Polyethylene Glycol (Miralax) 17 gm HSPRN PRN ORAL Constipation 07/26/16 19:15 08/25/16 19:14 Risperidone (RisperDAL) 3 mg TWICE A DAY ORAL 07/26/16 21:24 08/25/16 20:59 07/27/16 09:28 Zolpidem Tartrate (Ambien) 5 mg HSPRN PRN ORAL Insomnia 07/26/16 19:15 08/25/16 19:14 Alyssa Blanton M.D. Jul 27, 2016 17:29
[2016-07-27 19:00] VITALS: BP 114/74
--- NOTE | 2016-07-27 22:17 | Consultation ---
DATE OF CONSULTATION: 07/27/2016 NEUROLOGICAL CONSULTATION REQUESTING PHYSICIAN: Sergio Negron D.O. HISTORY OF PRESENT ILLNESS: The patient is a 55-year-old female, seen in neurological consultation to evaluate profound generalized weakness, loss of weight, and inability to ambulate. The patient has multiple medical issues. She is now presenting with 30 to 40 pounds of weight loss within the last few months. The patient did indicate that she she does not want to eat. In addition, she has a chronic low back pain. A lumbar spine implant was placed few years ago, but malfunction at this time, the patient indicated that for this reason she is unable to ambulate for last few months staying mostly in bed. On arrival, vital signs were stable. Heart rate of 102. She was afebrile. Her EKG normal sinus rhythm, no PVC. Chest x-ray, no acute disease. Laboratory work was obtained revealing a normal CBC study. Urinalysis with 5 to 10 WBCs, and 3+ leukocyte esterase. PAST MEDICAL HISTORY: The patient has a history of lumbar spine surgery with chronic pain requiring pain implant in the past has COPD, hypertension, diabetes, chronic anemia, and abnormal gait. MEDICATIONS: Her treatment prior to admission included Depakote 750 mg b.i.d., , glucagon, insulin, Lamictal 25 mg b.i.d., metformin, and Risperdal 3 mg b.i.d. ALLERGIES: Codeine. FAMILY HISTORY: Noncontributory. SOCIAL HISTORY: Lives in a convalescent home. No alcohol or drug abuse reported. PHYSICAL EXAMINATION: GENERAL: This is a well-developed, somewhat ill-appearing female, lying in bed, with a very depressed facial expression and crying. VITAL SIGNS: Now are stable. Blood pressure 113/76, temperature 97 degrees. HEENT: Head, normocephalic. No evidence of trauma. Eyes, ears, and throat are clear. NECK: Supple. No meningeal signs. MUSCULOSKELETAL: Unremarkable. There is no deformities. Peripheral pulses, 1+ and symmetric. MENTAL STATUS: The patient is alert and oriented to her name, age, place, but responding very slowly, reluctantly gave limited amount of information. She is able to follow simple commands. She is crying. CRANIAL NERVE II: Pupils both responding to light and accommodation. Extraocular movement intact. No nystagmus. CRANIAL NERVE V: Normal corneal responses. CRANIAL NERVE VII: Limited facial expression. CRANIAL NERVE VIII: Normal hearing. CRANIAL NERVE IX THROUGH XII: Tongue is in midline. Symmetric palate elevation. The patient is lying in bed with a food tray in front of her mouth touched. She is not eating on her own. MOTOR EXAMINATION: Slight diffuse rigidity in all extremities. Able to lift arms and lesser degree of legs against the gravity. There is an action tremor of both upper extremities. Deep tendon reflexes 1+ bilaterally symmetric. Plantar responses flexor. SENSORY EXAMINATION: Decreased pin sensation in both lower extremities distally. Gait not tested. The patient refused to sit or stand up on her own. IMPRESSION: 1. Diabetic polyneuropathy. 2. History of abnormal gait most likely multifactorial, including polyneuropathy, deconditioning, and psychosomatic abnormality. 3. Major depression, exacerbation. 4. Failure to thrive very likely result of underlying depression. 5. Hypertension. 6. Status post lumbar laminectomy with a chronic pain. 7. History of epilepsy (patient denies). RECOMMENDATIONS: 1. Psychiatry assessment to address issue from severe depression. 2. PT/OT to start mobility protocol. 3. Occult malignancy workup. 4. May need CT of the lumbosacral spine to rule out spinal stenosis. 5. Nutritional assessment. Thank you for allowing me to see this interesting patient in neurological consultation. Luke Waller M.D. DR: SHLOMO JOB#: [id number] CC:
[2016-07-28] MEDS: metroNIDAZOLE 500mg tab ORAL SCH ×4 (00:19→18:00)
[2016-07-28 00:42] VITALS: BP 94/72
[2016-07-28 04:00] VITALS: BP 106/74
[2016-07-28] MEDS: NovoLOG Insulin Flexpen SUBQ SCH ×4 (06:06→21:30)
[2016-07-28 08:00] VITALS: BP 97/64
[2016-07-28] MEDS: Heparin 5000 units/ml inj SUBQ SCH ×2 (08:37→21:29)
[2016-07-28 12:00] VITALS: BP 104/78
--- NOTE | 2016-07-28 15:10 | Pulmonology Progress Note ---
Assessment/Plan Problems: (1) UTI (urinary tract infection) (2) Episode of generalized weakness (3) Diabetic polyneuropathy (4) nonambulatory, r/o spinal stenosis, r/o psychosomatic d/o (5) custodial pneumonia (6) Depression Assessment/Plan doing better, eating more no SOB dvt prophylaxis dc planning Subjective ROS Limited/Unobtainable: No Interval Events: awake, eating well Allergies: Coded Allergies: CODEINE (Verified Allergy, Unknown, 07/26/16) Objective Last 24 Hour Vital Signs Date Time Temp Pulse Resp B/P Pulse Ox O2 Delivery O2 Flow Rate FiO2 07/28/16 12:00 96.4 65 18 104/78 97 Room Air 07/28/16 08:00 97.0 70 16 97/64 97 07/28/16 04:00 97.3 74 19 106/74 97 Room Air 07/28/16 00:42 97.5 77 21 94/72 97 Room Air 07/27/16 19:00 97.7 88 20 114/74 96 Room Air 07/27/16 16:00 97.3 81 20 105/77 98 Room Air Intake and Output 07/27/16 07/28/16 19:00 07:00 Intake Total 400 ml 120 ml Output Total 250 ml 725 ml Balance 150 ml -605 ml Intake Oral 400 ml 120 ml Output Urine Total 250 ml 725 ml # Bowel Movements 1 2 General Appearance: WD/WN HEENT: normocephalic Respiratory/Chest: chest wall non-tender, lungs clear Cardiovascular: normal peripheral pulses, normal rate Abdomen: normal bowel sounds, soft, non tender Extremities: no cyanosis Skin: no rash Microbiology Date/Time Source Procedure Growth Status 07/26/16 17:30 Nasal Nares MRSA Culture - Final NO METHICILLIN RESISTANT STAPH AUREUS... Complete 07/28/16 01:55 Stool Clostridium difficile Toxin Assay - Final Complete 07/26/16 14:30 Urine,Clean Catch Urine Culture - Final Escherichia Coli Complete 07/26/16 17:30 Rectum VRE Culture - Final NO VANCOMYCIN RESISTANT ENTEROCOCCUS ... Complete Laboratory Tests 07/28/16 08:05: Rapid Plasma Reagin [Pending] 07/28/16 08:15: HIV (1&2) Antibody Rapid Negative Current Medications Medications (Trade) Dose Ordered Sig/Rene Route PRN Reason Start Time Stop Time Status Last Admin Dose Admin Acetaminophen (Tylenol) 650 mg Q4H PRN ORAL fever 07/26/16 19:15 08/25/16 19:14 Al Hydroxide/Mg Hydroxide (Mylanta II) 30 ml Q6H PRN ORAL dyspepsia 07/26/16 19:15 08/25/16 19:14 Dextrose (Dextrose 50%) STAT PRN IV Hypoglycemia 07/26/16 19:15 08/25/16 19:14 Divalproex Sodium (Depakote) 750 mg Q12H ORAL 07/26/16 21:00 08/25/16 20:59 07/28/16 08:36 Heparin Sodium (Porcine) (Heparin 5000 units/ml) 5,000 units EVERY 12 HOURS SUBQ 07/26/16 21:00 08/25/16 20:59 07/28/16 08:37 Insulin Aspart (NovoLOG) BEFORE MEALS AND HS SUBQ 07/26/16 21:00 08/25/16 20:59 07/27/16 21:43 Lamotrigine (LaMICtal) 25 mg TWICE A DAY ORAL 07/26/16 21:00 08/25/16 20:59 07/28/16 08:36 Levofloxacin (Levaquin) 250 mg DAILY ORAL 07/28/16 10:00 08/01/16 09:59 07/28/16 10:20 Lorazepam (Ativan 2mg/ml 1ml) 0.5 mg Q4H PRN IV For Anxiety 07/26/16 19:15 08/02/16 19:14 Metronidazole (Flagyl) 500 mg Q6HR ORAL 07/26/16 18:00 08/02/16 17:59 07/28/16 11:32 Morphine Sulfate (Morphine Sulfate) 1 mg Q4H PRN IVP For Pain 07/26/16 20:15 08/02/16 20:14 Ondansetron HCl (Zofran) 4 mg Q6H PRN IVP Nausea & Vomiting 07/26/16 19:15 08/25/16 19:14 Polyethylene Glycol (Miralax) 17 gm HSPRN PRN ORAL Constipation 07/26/16 19:15 08/25/16 19:14 Risperidone (RisperDAL) 3 mg TWICE A DAY ORAL 07/26/16 21:24 08/25/16 20:59 07/28/16 08:36 Zolpidem Tartrate (Ambien) 5 mg HSPRN PRN ORAL Insomnia 07/26/16 19:15 08/25/16 19:14 RC PADILLA Jul 28, 2016 15:10
--- NOTE | 2016-07-28 15:23 | General Progress Note ---
Assessment/Plan Problem List: (1) FTT (failure to thrive) in adult ICD Codes: R62.7 - Adult failure to thrive SNOMED: 486640373 (2) UTI (urinary tract infection) ICD Codes: N39.0 - Urinary tract infection, site not specified SNOMED: 05826166 Qualifiers: Qualified Codes: N30.00 - Acute cystitis without hematuria (3) Episode of generalized weakness ICD Codes: R53.1 - Weakness SNOMED: 62439582 (4) Weight loss, non-intentional ICD Codes: R63.4 - Abnormal weight loss SNOMED: 750559406 Status: stable, progressing, tolerating diet Assessment/Plan ot pt diet psyc tx abx cbc bmp am promise and mendy eval Subjective Constitutional: Reports: weakness Allergies: Coded Allergies: CODEINE (Verified Allergy, Unknown, 07/26/16) All Systems: reviewed and negative except above Subjective calm in bed weak sl n Objective Last 24 Hour Vital Signs Date Time Temp Pulse Resp B/P Pulse Ox O2 Delivery O2 Flow Rate FiO2 07/28/16 12:00 96.4 65 18 104/78 97 Room Air 07/28/16 08:00 97.0 70 16 97/64 97 07/28/16 04:00 97.3 74 19 106/74 97 Room Air 07/28/16 00:42 97.5 77 21 94/72 97 Room Air 07/27/16 19:00 97.7 88 20 114/74 96 Room Air 07/27/16 16:00 97.3 81 20 105/77 98 Room Air Intake and Output 07/27/16 07/28/16 19:00 07:00 Intake Total 400 ml 120 ml Output Total 250 ml 725 ml Balance 150 ml -605 ml Intake Oral 400 ml 120 ml Output Urine Total 250 ml 725 ml # Bowel Movements 1 2 Laboratory Tests 07/28/16 08:05: Rapid Plasma Reagin [Pending] 07/28/16 08:15: HIV (1&2) Antibody Rapid Negative Height (Feet): 5 Height (Inches): 5.00 Weight (Pounds): 130 General Appearance: lethargic EENT: normal ENT inspection Neck: normal alignment Cardiovascular: normal peripheral pulses, normal rate, regular rhythm Respiratory/Chest: chest wall non-tender, lungs clear, normal breath sounds Abdomen: normal bowel sounds, non tender, soft Extremities: normal inspection Edema: no edema noted Arm (L), no edema noted Arm (R), no edema noted Leg (L), no edema noted Leg (R), no edema noted Pedal (L), no edema noted Pedal (R), no edema noted Generalized Neurologic: responsive, motor weakness Skin: normal pigmentation, warm/dry RAMONA MORALES Jul 28, 2016 15:23
[2016-07-28 16:00] VITALS: BP 99/74
--- NOTE | 2016-07-28 16:08 | GI Initial Consult Note ---
History of Present Illness General Date patient seen: Jul 28, 2016 Time patient seen: 10:00 Reason for Hospitalization: Generalized Weakness Referring physician: RAMONA MORALES Reason for Consultation: FTT Present Illness HPI 55 YOF BIBEMS from SNF for alleged 30-40lb unintentional weight loss in 1 month. SNF endorses patient refusing to eat. PMD states patient is also refusing to eat. Patient states she eats 2x a day but doesnt get fed in evening. She otherwise denies loss of appetite, abd pain, nausea/vomiting, diarrhea. Per RN, patient has loose yellow stool. Sample collected. Patient not providing additional HPI, flat psych affect. GI CONSULT: HPI as noted above. Pt seen on floor, awake A&Ox2 AMS with psychiatric flat affect. GI consulted for FTT and poor PO intake. Pt presents today with unremarkable CBC, LFTs. Noted per RN report the patient has had poor PO intake, pending calorie count. In addition, the patient is cdiff positive. ST evaluation is also pending. Unknown history of any endoscopic procedures. Home Meds Reported Medications Clotrimazole* (LOTRIMIN*) 15 Gm Cream..g., 1 APPLIC TOPIC DAILY, GM 07/26/16 Insulin Aspart (Novolog Flexpen) 100 Unit/1 Ml Insuln.pen, SQ AC+HS 07/26/16 Risperidone* (RISPERDAL*) 2 Mg Tablet, 3 MG ORAL TWICE A DAY, #30 TAB 0 Refills 07/26/16 Multivitamins* (MULTIVITAMINS*) 1 Each Tablet, 1 TAB ORAL DAILY, TAB 0 Refills 07/26/16 Metformin Hcl* (METFORMIN HCL*) 500 Mg Tablet, 500 MG ORAL DAILY, TAB 07/26/16 Lamotrigine* (LAMICTAL*) 25 Mg Tablet, 25 MG ORAL TWICE A DAY, #30 TAB 0 Refills 07/26/16 Glucagon (Glucagen) 1 Mg/1 Ml Vial, 1 MG IM Y for hypoglycemic, VIAL 07/26/16 Folic Acid* (FOLIC ACID*) 1 Mg Tablet, 1 MG ORAL DAILY, TAB 07/26/16 Divalproex Sodium* (DEPAKOTE*) 250 Mg Tablet.dr, 750 MG PO TWICE A DAY, TAB 07/26/16 Med list reviewed/reconciled: Yes Allergies: Coded Allergies: CODEINE (Verified Allergy, Unknown, 07/26/16) Patient History Limited by: medical condition History Provided By: Medical Record PMH Narrative Past Medical History: DM, HTN, psych hx Past Surgical History: unable to obtain Pertinent Family History: unable to obtain Social History: Denies: alcohol use, drug use, smoking Now: No Immunizations: UTD Reviewed Nursing Documentation: PMH: Agreed, PSxH: Agreed Nursing Documentation-PMH Past Medical History: No History, Except For Hx Hypertension: Yes Hx COPD: Yes Hx Diabetes: Yes History Of Psychiatric Problem: Yes - bipolar schizophrenia Hx Neurological Problems: Yes - dementia Hx Seizures: Yes Review of Systems All Other Systems: negative except mentioned in HPI Physical Exam Vital Signs Date Time Temp Pulse Resp B/P Pulse Ox O2 Delivery O2 Flow Rate FiO2 07/26/16 14:15 98.1 102 14 121/75 97 Room Air Sp02 EP Interpretation: reviewed Labs Laboratory Tests Test 07/28/16 08:05 07/28/16 08:15 Rapid Plasma Reagin Pending HIV (1&2) Antibody Rapid Negative (NEGATIVE) General Appearance: no apparent distress, alert Head: normocephalic EENT: normal ENT inspection Neck: supple Respiratory: no respiratory distress Cardiovascular: normal rate Gastrointestinal: normal inspection, non tender, soft, normal bowel sounds Genitourinary: no CVA tenderness Musculoskeletal: normal inspection, back normal Neurologic: alert, responsive Psychiatric: depressed affect Skin: normal inspection, normal color, no rash, warm/dry Lymphatic: normal inspection, no adenopathy Current Medications Current Medications Medications (Trade) Dose Ordered Sig/Rene Route PRN Reason Start Time Stop Time Status Last Admin Dose Admin Acetaminophen (Tylenol) 650 mg Q4H PRN ORAL fever 07/26/16 19:15 08/25/16 19:14 Al Hydroxide/Mg Hydroxide (Mylanta II) 30 ml Q6H PRN ORAL dyspepsia 07/26/16 19:15 08/25/16 19:14 Dextrose (Dextrose 50%) STAT PRN IV Hypoglycemia 07/26/16 19:15 08/25/16 19:14 Divalproex Sodium (Depakote) 750 mg Q12H ORAL 07/26/16 21:00 08/25/16 20:59 07/28/16 08:36 Heparin Sodium (Porcine) (Heparin 5000 units/ml) 5,000 units EVERY 12 HOURS SUBQ 07/26/16 21:00 08/25/16 20:59 07/28/16 08:37 Insulin Aspart (NovoLOG) BEFORE MEALS AND HS SUBQ 07/26/16 21:00 08/25/16 20:59 07/27/16 21:43 Lamotrigine (LaMICtal) 25 mg TWICE A DAY ORAL 07/26/16 21:00 08/25/16 20:59 07/28/16 08:36 Levofloxacin (Levaquin) 250 mg DAILY ORAL 07/28/16 10:00 08/01/16 09:59 07/28/16 10:20 Lorazepam (Ativan 2mg/ml 1ml) 0.5 mg Q4H PRN IV For Anxiety 07/26/16 19:15 08/02/16 19:14 Metronidazole (Flagyl) 500 mg Q6HR ORAL 07/26/16 18:00 08/02/16 17:59 07/28/16 11:32 Morphine Sulfate (Morphine Sulfate) 1 mg Q4H PRN IVP For Pain 07/26/16 20:15 08/02/16 20:14 Ondansetron HCl (Zofran) 4 mg Q6H PRN IVP Nausea & Vomiting 07/26/16 19:15 08/25/16 19:14 Polyethylene Glycol (Miralax) 17 gm HSPRN PRN ORAL Constipation 07/26/16 19:15 08/25/16 19:14 Risperidone (RisperDAL) 3 mg TWICE A DAY ORAL 07/26/16 21:24 08/25/16 20:59 07/28/16 08:36 Zolpidem Tartrate (Ambien) 5 mg HSPRN PRN ORAL Insomnia 07/26/16 19:15 08/25/16 19:14 GI: Plan Problems: (1) [facility] pneumonia (2) Depression (3) FTT (failure to thrive) in adult (4) Weight loss, non-intentional Plan symptomatic treatment at this time poor PO intake, consider marinol fu calorie count fu ST eval ADA diet abx for cdiff H2 fu labs Discussed with Dr. Stewart. Thank you for referring this patient, we will follow. Marquita Degroot N.P. Jul 28, 2016 16:08
--- NOTE | 2016-07-28 17:47 | Infectious Diseases Prog Note ---
Assessment/Plan Problems: (1) UTI (urinary tract infection) Assessment & Plan: with E.coli intermediate to ceftriaxon, will stop ceftriaxone and switch to levofloxacin and treat her for 5 days total (2) Diarrhea Assessment & Plan: due to C DIFF infection, continue metronidazole for two weeks , avoid PPI, and Imodium (3) Weight loss, non-intentional Assessment & Plan: TSH and HIV screening is negative , dietary is following (4) Episode of generalized weakness Assessment & Plan: suspect due to the above (5) Depression Assessment & Plan: recommend psych consult. (6) Wound, open, buttock Assessment & Plan: continue local wound care and off loading, wound care team is following Subjective Constitutional: Reports: anorexia Gastrointestinal/Abdominal: Reports: bloating, nausea Allergies: Coded Allergies: CODEINE (Verified Allergy, Unknown, 07/26/16) All Systems: reviewed and negative except above Objective Vital Signs Last 24 Hour Vital Signs Date Time Temp Pulse Resp B/P Pulse Ox O2 Delivery O2 Flow Rate FiO2 07/28/16 16:00 96.3 80 18 99/74 98 Room Air 07/28/16 12:00 96.4 65 18 104/78 97 Room Air 07/28/16 08:00 97.0 70 16 97/64 97 07/28/16 04:00 97.3 74 19 106/74 97 Room Air 07/28/16 00:42 97.5 77 21 94/72 97 Room Air 07/27/16 19:00 97.7 88 20 114/74 96 Room Air Height (Feet): 5 Height (Inches): 5.00 Weight (Pounds): 130 General Appearance: WD/WN, no acute distress HEENT: normocephalic, atraumatic, anicteric, mucous membranes moist Respiratory/Chest: chest wall non-tender, lungs clear, normal breath sounds, no respiratory distress, no accessory muscle use Cardiovascular: normal peripheral pulses, normal rate, regular rhythm, no gallop/murmur Abdomen: normal bowel sounds, no organomegaly, non distended, no mass, no scars , tender Extremities: no cyanosis, no clubbing Skin: no rash, no lesions, no ulcers Microbiology Date/Time Source Procedure Growth Status 07/26/16 17:30 Nasal Nares MRSA Culture - Final NO METHICILLIN RESISTANT STAPH AUREUS... Complete 07/28/16 01:55 Stool Clostridium difficile Toxin Assay - Final Complete 07/26/16 14:30 Urine,Clean Catch Urine Culture - Final Escherichia Coli Complete 07/26/16 17:30 Rectum VRE Culture - Final NO VANCOMYCIN RESISTANT ENTEROCOCCUS ... Complete Laboratory Tests Test 07/28/16 08:05 07/28/16 08:15 Rapid Plasma Reagin Pending HIV (1&2) Antibody Rapid Negative (NEGATIVE) Current Medications Medications (Trade) Dose Ordered Sig/Rene Route PRN Reason Start Time Stop Time Status Last Admin Dose Admin Acetaminophen (Tylenol) 650 mg Q4H PRN ORAL fever 07/26/16 19:15 08/25/16 19:14 Al Hydroxide/Mg Hydroxide (Mylanta II) 30 ml Q6H PRN ORAL dyspepsia 07/26/16 19:15 08/25/16 19:14 Dextrose (Dextrose 50%) STAT PRN IV Hypoglycemia 07/26/16 19:15 08/25/16 19:14 Divalproex Sodium (Depakote) 750 mg Q12H ORAL 07/26/16 21:00 08/25/16 20:59 07/28/16 08:36 Famotidine (Pepcid I.v.) 20 mg Q12HR IVP 07/28/16 21:00 08/27/16 20:59 Heparin Sodium (Porcine) (Heparin 5000 units/ml) 5,000 units EVERY 12 HOURS SUBQ 07/26/16 21:00 08/25/16 20:59 07/28/16 08:37 Insulin Aspart (NovoLOG) BEFORE MEALS AND HS SUBQ 07/26/16 21:00 08/25/16 20:59 07/28/16 17:18 Lamotrigine (LaMICtal) 25 mg TWICE A DAY ORAL 07/26/16 21:00 08/25/16 20:59 07/28/16 08:36 Levofloxacin (Levaquin) 250 mg DAILY ORAL 07/28/16 10:00 08/01/16 09:59 07/28/16 10:20 Lorazepam (Ativan 2mg/ml 1ml) 0.5 mg Q4H PRN IV For Anxiety 07/26/16 19:15 08/02/16 19:14 Metronidazole (Flagyl) 500 mg Q6HR ORAL 07/26/16 18:00 08/02/16 17:59 07/28/16 11:32 Morphine Sulfate (Morphine Sulfate) 1 mg Q4H PRN IVP For Pain 07/26/16 20:15 08/02/16 20:14 Ondansetron HCl (Zofran) 4 mg Q6H PRN IVP Nausea & Vomiting 07/26/16 19:15 08/25/16 19:14 Polyethylene Glycol (Miralax) 17 gm HSPRN PRN ORAL Constipation 07/26/16 19:15 08/25/16 19:14 Risperidone (RisperDAL) 3 mg TWICE A DAY ORAL 07/26/16 21:24 08/25/16 20:59 07/28/16 08:36 Zolpidem Tartrate (Ambien) 5 mg HSPRN PRN ORAL Insomnia 07/26/16 19:15 08/25/16 19:14 Alyssa Blanton M.D. Jul 28, 2016 17:47
[2016-07-28 20:00] VITALS: BP 105/71
[2016-07-28] MEDS: Famotidine 20 MG/ 2ML VIAL IVP SCH (21:27)
--- NOTE | 2016-07-28 22:07 | Consultation ---
DATE OF CONSULTATION: 07/27/2016 PSYCHOTHERAPY CONSULTATION PROGRESS NOTE: CONSULTING PHYSICIAN: Marci Bhardwaj M.D. TREATING ATTENDING: Sergio Negron D.O. HISTORY OF PRESENT ILLNESS: The patient is a 55-year-old female admitted to the hospital with failure to thrive. The patient is initially from [facility]. She has been very weak, experiencing weight loss, encephalopathy, confusion, disorientation, and altered mental status. This clinician assessed this patient today. The patient states she has been losing her appetite for one month, does not know why. The patient states she has not been eating. She has not been sleeping. She has been feeling very depressed. She was unable to identify any particular triggers. The patient denies suicidal or homicidal thoughts or ideation at this time. Denies auditory or visual hallucination. PAST MEDICAL HISTORY: Includes history of weakness and encephalopathy. ALLERGIES: The patient is allergic to codeine. SUBSTANCE ABUSE HISTORY: The patient denies history of alcohol use, illicit substance use, or smoking cigarettes. PSYCHIATRIC HISTORY: The patient does have a history of encephalopathy, confusion, disorientation, and altered mental status. SOCIAL HISTORY: The patient is a 55-year-old female. The patient from [facility]. Financially sustained through Medicare and [employer]. MENTAL STATUS EXAMINATION: The patient is alert and oriented x1, to person. Mood is depressed. Affect is blunted. Thought process is disorganized. Thought content is confused. The patient has poor attention and concentration. Poor insight, judgment, and impulse control. This clinician assessed this patient. Provided the patient with supportive psychotherapy, reality orientation, and coping skills. Encouraging the patient to participate in treatment as well as medication regimen. Continue with medication management and behavioral management. This clinician has reviewed the patient's chart. Discussed the treatment with nursing staff. DIAGNOSES: AXIS I Major depressive disorder, severe, without psychotic features. AXIS II Deferred. AXIS III Per History And Physical. AXIS IV Problems with social environment. AXIS V Global assessment functioning is 20. PLAN: This clinician assessed the patient. Provided the patient with supportive psychotherapy, reality orientation, and coping skills. Encouraging the patient to participate in treatment as well as medication regimen. Continue with medication management and behavioral management. This clinician has reviewed the patient's chart. Discussed the treatment with nursing staff. Marci Bhardwaj PsyD. DR: Magalie JOB#: [id number] CC:
[2016-07-29] VITALS (7 sets, daily range): BP systolic 89–103; BP diastolic 54–74
[2016-07-29] MEDS: metroNIDAZOLE 500mg tab ORAL SCH ×4 (00:02→18:05)
[2016-07-29] MEDS: NovoLOG Insulin Flexpen SUBQ SCH ×4 (05:21→21:04)
[2016-07-29 07:22] LABS: BASOPHILS % (AUTO) 1.2 % (0.0-2.0); EOSINOPHILS % (AUTO) 2.4 % (0.0-3.0); LYMPHOCYTES % (AUTO) 44.5 % (20.0-45.0); MEAN CORPUSCULAR HEMOGLOBIN 30.8 PG (27.0-31.0); MEAN CORPUSCULAR HGB CONC 33.5 G/DL (32.0-36.0); MEAN CORPUSCULAR VOLUME 92 FL (80-99); MEAN PLATELET VOLUME 6.5 FL (6.5-10.1); MONOCYTES % (AUTO) 8.6 % (1.0-10.0); NEUTROPHILS % (AUTO) 43.3 % (45.0-75.0); PLATELET COUNT 254 K/UL (150-450); RED BLOOD COUNT 4.15 M/UL (4.20-5.40); RED CELL DISTRIBUTION WIDTH 11.8 % (11.6-14.8); WHITE BLOOD COUNT 6.4 K/UL (4.8-10.8)
[2016-07-29 07:32] LABS: ANION GAP 11 (5-15); CALCIUM 9.2 mg/dL (8.6-10.2); CARBON DIOXIDE 32 mEQ/L (20-30); CHLORIDE 98 mEQ/L (98-107); CREATININE 0.6 mg/dL (0.5-0.9); GLOMERULAR FILTRATION RATE > 60 mL/min (>60); HEMOLYSIS 3; POTASSIUM 4.2 mEQ/L (3.4-4.9); SODIUM 141 mEQ/L (135-145)
[2016-07-29] MEDS: Famotidine 20 MG/ 2ML VIAL IVP SCH ×2 (09:17→21:03)
[2016-07-29] MEDS: Heparin 5000 units/ml inj SUBQ SCH ×2 (09:17→21:05)
--- NOTE | 2016-07-29 10:31 | GI Progress Note ---
Assessment/Plan Problems: (1) Clostridium difficile diarrhea ICD Codes: A04.7 - Enterocolitis due to Clostridium difficile SNOMED: 99235689, 859011624 (2) FTT (failure to thrive) in adult ICD Codes: R62.7 - Adult failure to thrive SNOMED: 818351662 (3) Weight loss, non-intentional ICD Codes: R63.4 - Abnormal weight loss SNOMED: 269374520 (4) Diarrhea ICD Codes: R19.7 - Diarrhea, unspecified SNOMED: 65308485 Status: unchanged Status Narrative Discussed with Dr. Stewart. Assessment/Plan symptomatic treatment at this time poor PO intake, consider marinol fu calorie count fu ST eval ADA diet abx for cdiff H2 fu labs Subjective Gastrointestinal/Abdominal: Reports: diarrhea Objective Last 24 Hour Vital Signs Date Time Temp Pulse Resp B/P Pulse Ox O2 Delivery O2 Flow Rate FiO2 07/29/16 08:00 97.5 70 20 101/68 99 Room Air 07/29/16 04:00 97.4 75 20 103/74 100 Room Air 07/29/16 00:00 97.7 80 18 99/57 100 Room Air 07/28/16 20:00 96.9 102 16 105/71 96 Room Air 07/28/16 16:00 96.3 80 18 99/74 98 Room Air 07/28/16 12:00 96.4 65 18 104/78 97 Room Air Intake and Output 07/28/16 07/29/16 19:00 07:00 Intake Total 240 ml 180 ml Output Total 300 ml 1000 ml Balance -60 ml -820 ml Intake Oral 240 ml 180 ml Output Urine Total 300 ml 1000 ml Laboratory Tests Test 07/29/16 05:00 White Blood Count 6.4 K/UL (4.8-10.8) Red Blood Count 4.15 M/UL (4.20-5.40) L Hemoglobin 12.8 G/DL (12.0-16.0) Hematocrit 38.1 % (37.0-47.0) Mean Corpuscular Volume 92 FL (80-99) Mean Corpuscular Hemoglobin 30.8 PG (27.0-31.0) Mean Corpuscular Hemoglobin Concent 33.5 G/DL (32.0-36.0) Red Cell Distribution Width 11.8 % (11.6-14.8) Platelet Count 254 K/UL (150-450) Mean Platelet Volume 6.5 FL (6.5-10.1) Neutrophils (%) (Auto) 43.3 % (45.0-75.0) L Lymphocytes (%) (Auto) 44.5 % (20.0-45.0) Monocytes (%) (Auto) 8.6 % (1.0-10.0) Eosinophils (%) (Auto) 2.4 % (0.0-3.0) Basophils (%) (Auto) 1.2 % (0.0-2.0) Sodium Level 141 mEQ/L (135-145) Potassium Level 4.2 mEQ/L (3.4-4.9) Chloride Level 98 mEQ/L (98-107) Carbon Dioxide Level 32 mEQ/L (20-30) H Anion Gap 11 (5-15) Blood Urea Nitrogen 12 mg/dL (7-23) Creatinine 0.6 mg/dL (0.5-0.9) Estimat Glomerular Filtration Rate > 60 mL/min (>60) Glucose Level 92 mg/dL (74-106) Calcium Level 9.2 mg/dL (8.6-10.2) Height (Feet): 5 Height (Inches): 5.00 Weight (Pounds): 130 General Appearance: no apparent distress, alert Cardiovascular: normal rate Respiratory/Chest: normal breath sounds, no respiratory distress Abdominal Exam: normal bowel sounds, non tender, soft Marquita Degroot N.P. Jul 29, 2016 10:31
--- NOTE | 2016-07-29 16:07 | Pulmonology Progress Note ---
Assessment/Plan Problems: (1) UTI (urinary tract infection) (2) Episode of generalized weakness (3) Diabetic polyneuropathy (4) nonambulatory, r/o spinal stenosis, r/o psychosomatic d/o (5) skilled nursing pneumonia (6) Depression Assessment/Plan eating well doing better, eating more no SOB dvt prophylaxis dc planning Subjective ROS Limited/Unobtainable: No Constitutional: Reports: no symptoms HEENT: Repors: no symptoms Respiratory: Reports: no symptoms Allergies: Coded Allergies: CODEINE (Verified Allergy, Unknown, 07/26/16) Objective Last 24 Hour Vital Signs Date Time Temp Pulse Resp B/P Pulse Ox O2 Delivery O2 Flow Rate FiO2 07/29/16 12:00 97.6 78 19 90/61 95 Room Air 07/29/16 08:00 97.5 70 20 101/68 99 Room Air 07/29/16 04:00 97.4 75 20 103/74 100 Room Air 07/29/16 00:00 97.7 80 18 99/57 100 Room Air 07/28/16 20:00 96.9 102 16 105/71 96 Room Air Intake and Output 07/28/16 07/29/16 19:00 07:00 Intake Total 240 ml 180 ml Output Total 300 ml 1000 ml Balance -60 ml -820 ml Intake Oral 240 ml 180 ml Output Urine Total 300 ml 1000 ml General Appearance: WD/WN HEENT: normocephalic, anicteric Respiratory/Chest: chest wall non-tender, lungs clear Cardiovascular: normal peripheral pulses, normal rate Abdomen: normal bowel sounds, soft, non tender Genitourinary: normal external genitalia Skin: no ulcers 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 Complete 07/28/16 01:55 Stool Clostridium difficile Toxin Assay - Final Complete 07/28/16 01:55 Anus Stool Culture - Preliminary Resulted 07/26/16 17:30 Rectum VRE Culture - Final NO VANCOMYCIN RESISTANT ENTEROCOCCUS ... Complete Laboratory Tests 07/29/16 05:00: White Blood Count 6.4, Red Blood Count 4.15L, Hemoglobin 12.8, Hematocrit 38.1, Mean Corpuscular Volume 92, Mean Corpuscular Hemoglobin 30.8, Mean Corpuscular Hemoglobin Concent 33.5, Red Cell Distribution Width 11.8, Platelet Count 254, Mean Platelet Volume 6.5, Neutrophils (%) (Auto) 43.3L, Lymphocytes (%) (Auto) 44.5, Monocytes (%) (Auto) 8.6, Eosinophils (%) (Auto) 2.4, Basophils (%) (Auto ) 1.2, Sodium Level 141, Potassium Level 4.2, Chloride Level 98, Carbon Dioxide Level 32H, Anion Gap 11, Blood Urea Nitrogen 12, Creatinine 0.6, Estimat Glomerular Filtration Rate > 60, Glucose Level 92, Calcium Level 9.2 Current Medications Medications (Trade) Dose Ordered Sig/Rene Route PRN Reason Start Time Stop Time Status Last Admin Dose Admin Acetaminophen (Tylenol) 650 mg Q4H PRN ORAL fever 07/26/16 19:15 08/25/16 19:14 Al Hydroxide/Mg Hydroxide (Mylanta II) 30 ml Q6H PRN ORAL dyspepsia 07/26/16 19:15 08/25/16 19:14 Dextrose (Dextrose 50%) STAT PRN IV Hypoglycemia 07/26/16 19:15 08/25/16 19:14 Divalproex Sodium (Depakote) 750 mg Q12H ORAL 07/26/16 21:00 08/25/16 20:59 07/29/16 09:16 Famotidine (Pepcid I.v.) 20 mg Q12HR IVP 07/28/16 21:00 08/27/16 20:59 07/29/16 09:17 Heparin Sodium (Porcine) (Heparin 5000 units/ml) 5,000 units EVERY 12 HOURS SUBQ 07/26/16 21:00 08/25/16 20:59 07/29/16 09:17 Insulin Aspart (NovoLOG) BEFORE MEALS AND HS SUBQ 07/26/16 21:00 08/25/16 20:59 07/29/16 12:30 Lamotrigine (LaMICtal) 25 mg TWICE A DAY ORAL 07/26/16 21:00 08/25/16 20:59 07/29/16 09:16 Levofloxacin (Levaquin) 250 mg DAILY ORAL 07/28/16 10:00 08/01/16 09:59 07/29/16 09:16 Lorazepam (Ativan 2mg/ml 1ml) 0.5 mg Q4H PRN IV For Anxiety 07/26/16 19:15 08/02/16 19:14 Metronidazole (Flagyl) 500 mg Q6HR ORAL 07/26/16 18:00 08/02/16 17:59 07/29/16 12:31 Morphine Sulfate (Morphine Sulfate) 1 mg Q4H PRN IVP For Pain 07/26/16 20:15 08/02/16 20:14 Ondansetron HCl (Zofran) 4 mg Q6H PRN IVP Nausea & Vomiting 07/26/16 19:15 08/25/16 19:14 Polyethylene Glycol (Miralax) 17 gm HSPRN PRN ORAL Constipation 07/26/16 19:15 08/25/16 19:14 Risperidone (RisperDAL) 3 mg TWICE A DAY ORAL 07/26/16 21:24 08/25/16 20:59 07/29/16 09:15 Zolpidem Tartrate (Ambien) 5 mg HSPRN PRN ORAL Insomnia 07/26/16 19:15 08/25/16 19:14 RC PADILLA Jul 29, 2016 16:07
--- NOTE | 2016-07-29 16:31 | General Progress Note ---
Assessment/Plan Problem List: (1) FTT (failure to thrive) in adult ICD Codes: R62.7 - Adult failure to thrive SNOMED: 236406102 (2) UTI (urinary tract infection) ICD Codes: N39.0 - Urinary tract infection, site not specified SNOMED: 35709970 Qualifiers: Qualified Codes: N30.00 - Acute cystitis without hematuria (3) Episode of generalized weakness ICD Codes: R53.1 - Weakness SNOMED: 76760400 (4) Weight loss, non-intentional ICD Codes: R63.4 - Abnormal weight loss SNOMED: 836909362 Status: stable, progressing, tolerating diet Assessment/Plan ot pt diet psyc tx abx cbc bmp am promise transfer Subjective Constitutional: Reports: weakness Allergies: Coded Allergies: CODEINE (Verified Allergy, Unknown, 07/26/16) All Systems: reviewed and negative except above Subjective calm in bed weak sl n Objective Last 24 Hour Vital Signs Date Time Temp Pulse Resp B/P Pulse Ox O2 Delivery O2 Flow Rate FiO2 07/29/16 12:00 97.6 78 19 90/61 95 Room Air 07/29/16 08:00 97.5 70 20 101/68 99 Room Air 07/29/16 04:00 97.4 75 20 103/74 100 Room Air 07/29/16 00:00 97.7 80 18 99/57 100 Room Air 07/28/16 20:00 96.9 102 16 105/71 96 Room Air Intake and Output 07/28/16 07/29/16 19:00 07:00 Intake Total 240 ml 180 ml Output Total 300 ml 1000 ml Balance -60 ml -820 ml Intake Oral 240 ml 180 ml Output Urine Total 300 ml 1000 ml Laboratory Tests 07/29/16 05:00: White Blood Count 6.4, Red Blood Count 4.15L, Hemoglobin 12.8, Hematocrit 38.1, Mean Corpuscular Volume 92, Mean Corpuscular Hemoglobin 30.8, Mean Corpuscular Hemoglobin Concent 33.5, Red Cell Distribution Width 11.8, Platelet Count 254, Mean Platelet Volume 6.5, Neutrophils (%) (Auto) 43.3L, Lymphocytes (%) (Auto) 44.5, Monocytes (%) (Auto) 8.6, Eosinophils (%) (Auto) 2.4, Basophils (%) (Auto ) 1.2, Sodium Level 141, Potassium Level 4.2, Chloride Level 98, Carbon Dioxide Level 32H, Anion Gap 11, Blood Urea Nitrogen 12, Creatinine 0.6, Estimat Glomerular Filtration Rate > 60, Glucose Level 92, Calcium Level 9.2 Height (Feet): 5 Height (Inches): 5.00 Weight (Pounds): 130 General Appearance: lethargic EENT: normal ENT inspection Neck: non-tender Cardiovascular: normal peripheral pulses, normal rate, regular rhythm Respiratory/Chest: chest wall non-tender, lungs clear, normal breath sounds Abdomen: normal bowel sounds, non tender, soft Extremities: normal inspection Edema: no edema noted Arm (L), no edema noted Arm (R), no edema noted Leg (L), no edema noted Leg (R), no edema noted Pedal (L), no edema noted Pedal (R), no edema noted Generalized Neurologic: motor weakness Skin: normal pigmentation, warm/dry RAMONA MORALES Jul 29, 2016 16:31
[2016-07-29] MEDS ORDERED: TYLENOL650 MG/20. ORAL (17:32)
[2016-07-29] MEDS ORDERED: FAMOTIDINE20 MG IVP (17:34)
[2016-07-29] MEDS ORDERED: HEPARIN SO5000 UNIT2 SUBQ (17:35)
[2016-07-29] MEDS ORDERED: LEVOFLOXACIN250 MG ORAL (17:36)
[2016-07-29] MEDS ORDERED: LORAZEPAM2 MG/1 M3 IV (17:36)
[2016-07-29] MEDS ORDERED: MORPHINE 22 MG/1 ML IVP (17:38)
[2016-07-29] MEDS ORDERED: ZOFRAN 4 MG4 MG/2 ML IVP (17:38)
[2016-07-29] MEDS ORDERED: ZOLPIDEM TARTRAT5 MG ORAL (17:39)
[2016-07-29] MEDS ORDERED: POLYETHYLENE GL17 GM ORAL (17:39)
--- NOTE | 2016-07-29 19:45 | Infectious Diseases Prog Note ---
Assessment/Plan Problems: (1) UTI (urinary tract infection) Assessment & Plan: with E.coli intermediate to ceftriaxon, continue levofloxacin to treat for 5 days total (2) Diarrhea Assessment & Plan: due to C DIFF infection, continue oral metronidazole for two weeks , avoid PPI, and Imodium (3) Weight loss, non-intentional Assessment & Plan: TSH and HIV screening is negative , dietary is following (4) Episode of generalized weakness Assessment & Plan: suspect due to the above (5) Depression Assessment & Plan: recommend psych consult. (6) Wound, open, buttock Assessment & Plan: continue local wound care and off loading, wound care team is following Subjective Constitutional: Reports: anorexia Gastrointestinal/Abdominal: Reports: bloating, nausea Allergies: Coded Allergies: CODEINE (Verified Allergy, Unknown, 07/26/16) All Systems: reviewed and negative except above Objective Vital Signs Last 24 Hour Vital Signs Date Time Temp Pulse Resp B/P Pulse Ox O2 Delivery O2 Flow Rate FiO2 07/29/16 16:00 97.3 87 20 100/64 94 Room Air 07/29/16 12:00 97.6 78 19 90/61 95 Room Air 07/29/16 08:00 97.5 70 20 101/68 99 Room Air 07/29/16 04:00 97.4 75 20 103/74 100 Room Air 07/29/16 00:00 97.7 80 18 99/57 100 Room Air 07/28/16 20:00 96.9 102 16 105/71 96 Room Air Height (Feet): 5 Height (Inches): 5.00 Weight (Pounds): 130 General Appearance: WD/WN, no acute distress HEENT: normocephalic, atraumatic, anicteric, mucous membranes moist, PERRL Respiratory/Chest: chest wall non-tender, lungs clear, normal breath sounds, no respiratory distress, no accessory muscle use Cardiovascular: normal peripheral pulses, normal rate, regular rhythm, no gallop/murmur, no JVD Abdomen: normal bowel sounds, no organomegaly, no mass, no scars, hypoactive bowel sounds, tender Extremities: no cyanosis, no clubbing Skin: no rash, no lesions Microbiology Date/Time Source Procedure Growth Status 07/28/16 01:55 Stool Clostridium difficile Toxin Assay - Final Complete 07/28/16 01:55 Anus Stool Culture - Preliminary Resulted Laboratory Tests Test 07/29/16 05:00 White Blood Count 6.4 K/UL (4.8-10.8) Red Blood Count 4.15 M/UL (4.20-5.40) L Hemoglobin 12.8 G/DL (12.0-16.0) Hematocrit 38.1 % (37.0-47.0) Mean Corpuscular Volume 92 FL (80-99) Mean Corpuscular Hemoglobin 30.8 PG (27.0-31.0) Mean Corpuscular Hemoglobin Concent 33.5 G/DL (32.0-36.0) Red Cell Distribution Width 11.8 % (11.6-14.8) Platelet Count 254 K/UL (150-450) Mean Platelet Volume 6.5 FL (6.5-10.1) Neutrophils (%) (Auto) 43.3 % (45.0-75.0) L Lymphocytes (%) (Auto) 44.5 % (20.0-45.0) Monocytes (%) (Auto) 8.6 % (1.0-10.0) Eosinophils (%) (Auto) 2.4 % (0.0-3.0) Basophils (%) (Auto) 1.2 % (0.0-2.0) Sodium Level 141 mEQ/L (135-145) Potassium Level 4.2 mEQ/L (3.4-4.9) Chloride Level 98 mEQ/L (98-107) Carbon Dioxide Level 32 mEQ/L (20-30) H Anion Gap 11 (5-15) Blood Urea Nitrogen 12 mg/dL (7-23) Creatinine 0.6 mg/dL (0.5-0.9) Estimat Glomerular Filtration Rate > 60 mL/min (>60) Glucose Level 92 mg/dL (74-106) Calcium Level 9.2 mg/dL (8.6-10.2) Current Medications Medications (Trade) Dose Ordered Sig/Rene Route PRN Reason Start Time Stop Time Status Last Admin Dose Admin Acetaminophen (Tylenol) 650 mg Q4H PRN ORAL fever 07/26/16 19:15 08/25/16 19:14 Al Hydroxide/Mg Hydroxide (Mylanta II) 30 ml Q6H PRN ORAL dyspepsia 07/26/16 19:15 08/25/16 19:14 Dextrose (Dextrose 50%) STAT PRN IV Hypoglycemia 07/26/16 19:15 08/25/16 19:14 Divalproex Sodium (Depakote) 750 mg Q12H ORAL 07/26/16 21:00 08/25/16 20:59 07/29/16 09:16 Famotidine (Pepcid I.v.) 20 mg Q12HR IVP 07/28/16 21:00 08/27/16 20:59 07/29/16 09:17 Heparin Sodium (Porcine) (Heparin 5000 units/ml) 5,000 units EVERY 12 HOURS SUBQ 07/26/16 21:00 08/25/16 20:59 07/29/16 09:17 Insulin Aspart (NovoLOG) BEFORE MEALS AND HS SUBQ 07/26/16 21:00 08/25/16 20:59 07/29/16 12:30 Lamotrigine (LaMICtal) 25 mg TWICE A DAY ORAL 07/26/16 21:00 08/25/16 20:59 07/29/16 18:05 Levofloxacin (Levaquin) 250 mg DAILY ORAL 07/28/16 10:00 08/01/16 09:59 07/29/16 09:16 Lorazepam (Ativan 2mg/ml 1ml) 0.5 mg Q4H PRN IV For Anxiety 07/26/16 19:15 08/02/16 19:14 Metronidazole (Flagyl) 500 mg Q6HR ORAL 07/26/16 18:00 08/02/16 17:59 07/29/16 18:05 Morphine Sulfate (Morphine Sulfate) 1 mg Q4H PRN IVP For Pain 07/26/16 20:15 08/02/16 20:14 Ondansetron HCl (Zofran) 4 mg Q6H PRN IVP Nausea & Vomiting 07/26/16 19:15 08/25/16 19:14 Polyethylene Glycol (Miralax) 17 gm HSPRN PRN ORAL Constipation 07/26/16 19:15 08/25/16 19:14 Risperidone (RisperDAL) 3 mg TWICE A DAY ORAL 07/26/16 21:24 08/25/16 20:59 07/29/16 18:05 Zolpidem Tartrate (Ambien) 5 mg HSPRN PRN ORAL Insomnia 07/26/16 19:15 08/25/16 19:14 Alyssa Blanton M.D. Jul 29, 2016 19:45
--- NOTE | 2016-07-29 20:17 | Progress Note ---
DATE: 07/28/2016 PSYCHOTHERAPY CONSULTATION PROGRESS NOTE TREATING ATTENDING PHYSICIAN: Sergio Negron D.O. SUBJECTIVE: The patient is a 55-year-old female. The patient has been lethargic, tired, fatigued. The patient is on floor for evaluation for treatment and she has had difficulty with fatigue. She states that her appetite is low. She motivation . She has been depressed. PLAN: This clinician assessed the patient. This clinician provided the patient with reality orientation, supportive psychotherapy, and coping skills. Encouraging the patient to participate in treatment as well as with her medication regimen, increasing her . Continue with medication management and behavioral management. This clinician has reviewed the patient's chart and discussed the treatment with nursing staff. Marci Bhardwaj PsyD. DR: Madeline JOB#: [id number] CC:
[2016-07-29] MEDS ORDERED: NS 275ml ONE (21:54)
--- NOTE | 2016-07-31 23:17 | Progress Note ---
DATE: 07/29/2016 SUBJECTIVE: The patient is seen and assessed at [facility]. The patient still has some mood lability and depression. PLAN: Treat her with Depakote 750 mg twice a day, Risperdal 3 mg twice a day, and Lamictal 25 mg twice a day. Chart reviewed and discussed with staff. Seen and assessed at bedside. Ashley Ch M.D. DR: SAE JOB#: [id number] CC:
--- NOTE | 2016-08-01 02:27 | Consultation ---
DATE OF CONSULTATION: 07/26/2016 HISTORY OF PRESENT ILLNESS: The patient is a 55-year-old female patient, who came into [facility] with failure to thrive. The patient came in from [facility], but she has been very depressed with feelings of helplessness, hopelessness, loss of appetite, low energy, that is why there was a psychiatric consultation requested for this patient. PAST MEDICAL HISTORY: Weakness and encephalopathy. Please see internal medicine note for further details. Also, she has a history of diabetes, urinary tract infection, diabetic neuropathy, and status post C. diff. PSYCHIATRIC HISTORY: History of schizoaffective, bipolar type. MEDICATIONS: Currently on Lamictal 25 mg twice a day, Risperdal 2 mg twice a day, and Depakote 750 mg twice a day. ALLERGIES: To codeine. SOCIAL HISTORY: She lives in [facility]. Financially supported by [employer] and Medicare. SUBSTANCE ABUSE HISTORY: Denies drug or alcohol use. MENTAL STATUS EXAMINATION: This is a 55-year-old female with psychomotor agitation. Mood is irritable and agitated. Affect guarded and restricted. Thought process is disorganized and illogical. No signs of any suicidal or homicidal thoughts. Insight and judgment is poor. PLAN: Plan for this patient is to treat her with a psychiatric med regimen of Risperdal 2 mg twice a day, Depakote 750 mg twice a day, and Lamictal 25 mg twice a day. She will continue to be followed by Psychiatry throughout hospital course. Chart reviewed and discussed with the patient. Chart reviewed and discussed with staff. Seen and assessed at bedside. Ashley Ch M.D. DR: Radames JOB#: [id number] CC:
--- NOTE | 2016-08-01 02:37 | Progress Note ---
DATE: 07/28/2016 PLAN: Plan for this patient is to treat her with Depakote 750 mg twice a day, Risperdal 2 mg twice a day, and Lamictal 25 mg twice a day. The patient was seen and assessed in her room. Chart reviewed. Discussed with staff. Ashley Ch M.D. DR: GABO JOB#: [id number] CC:
--- NOTE | 2016-08-01 02:37 | Progress Note ---
DATE: 07/27/2016 PLAN: The patient is to stabilize her mood with Depakote 750 mg twice a day, Risperdal 3 mg twice a day, and Lamictal 25 mg twice a day. Seen and assessed at bedside. Chart was reviewed and discussed with staff. Ashley Ch M.D. DR: SAE JOB#: [id number] CC:
[2016-08-01] MEDS ORDERED: LEVOFLOXACIN250 MG ORAL (12:57)
[2016-08-01] MEDS ORDERED: METRONIDAZOLE500 MG ORAL (12:57)
--- NOTE | 2016-08-01 13:04 | Discharge Summary ---
Discharge Summary Hospital Course Date of Admission Jul 26, 2016 at 14:55 Date of Discharge Jul 29, 2016 at 21:55 Admitting Diagnosis failure to thrive HPI Geeta Tyson is a 55 year old female who was admitted on Jul 26, 2016 at 14:55 for Failure To Thrive Hospital Course dc summary dictated #[id number] Discharge Medications New Medications: Metronidazole* (Flagyl*) 500 Mg Tablet 500 MG ORAL EVERY 8 HOURS, #33 TAB Continued Medications: Acetaminophen (Acetaminophen) 650 Mg/20.3 Ml Solution 650 MG ORAL Q4HR PRN for Prn Headache/Temp > 101, ML 0 Refills Divalproex Sodium* (Depakote*) 250 Mg Tablet.dr 750 MG PO TWICE A DAY, TAB Famotidine (Famotidine) 20 Mg Tablet 20 MG IVP TWICE A DAY, #60 0 Refills Heparin Sod (Porcine) (Heparin Sodium*) 5 000/1 Ml Vial 5000 UNITS SUBQ EVERY 12 HOURS, VIAL Insulin Aspart (Novolog Flexpen) 100 Unit/1 Ml Insuln.pen SQ AC+HS Lamotrigine* (Lamictal*) 25 Mg Tablet 25 MG ORAL TWICE A DAY, #30 TAB 0 Refills Levofloxacin (Levofloxacin*) 250 Mg Tablet 250 MG ORAL DAILY for 3 Days, TAB (This prescription has been renewed) Lorazepam (Lorazepam) 2 Mg/1 Ml Syringe 0.5 MG IV Q4H PRN for For Anxiety, EA Morphine Sulfate* (Morphine Sulfate*) 2 Mg/1 Ml Cartridge 1 MG IVP Q4HR PRN for For Pain, EA Ondansetron* (Zofran*) 4 Mg/2 Ml Vial 4 MG IVP Q6H PRN for Nausea & Vomiting, VIAL Polyethylene Glycol 3350* (Polyethylene Glycol 3350*) 17 Gm Powd.pack 17 GM ORAL BEDTIME PRN for Constipation, PACKET Risperidone* (Risperdal*) 2 Mg Tablet 3 MG ORAL TWICE A DAY, #30 TAB 0 Refills Zolpidem Tartrate* (Zolpidem Tartrate*) 5 Mg Tablet 5 MG ORAL BEDTIME PRN for Insomnia, TAB 0 Refills Discontinued Medications: Clotrimazole* (Lotrimin*) 15 Gm Cream..g. 1 APPLIC TOPIC DAILY, GM Folic Acid* (Folic Acid*) 1 Mg Tablet 1 MG ORAL DAILY, TAB Glucagon (Glucagen) 1 Mg/1 Ml Vial 1 MG IM PRN for hypoglycemic, VIAL Metformin Hcl* (Metformin Hcl*) 500 Mg Tablet 500 MG ORAL DAILY, TAB Multivitamins* (Multivitamins*) 1 Each Tablet 1 TAB ORAL DAILY, TAB 0 Refills Discharge Condition Upon Discharge: stable Discharge Disposition Patient was discharged to SNF/Subacute Facility(03) Discharge Diagnoses: Discharge Instructions Discharge Instructions Special Instructions I have been assigned to complete a D/C Summary on this account. I was not involved in the patient management Rain Peterson NP ([place]te[place]) Aug 01, 2016 13:04
--- NOTE | 2016-08-02 05:28 | Discharge Summary 2 SIG ---
DATE OF ADMISSION: 07/26/2016 DATE OF DISCHARGE: 07/29/2016 REASON FOR ADMISSION: 55-year-old female, was brought from the [facility] where she resides, with alleged 30- to 40-pound unintentional weight loss for one month. The [facility] reported that the patient was refusing to eat. The patient stated that she had food twice in a day, but she was not getting food at nighttime. She denied loss of appetite, abdominal pain, nausea, and vomiting. She admitted to diarrhea. Per nursing staff , the patient o had loose yellow stool. Sample collected at the emergency room. In the emergency room, it was found that the patient had no leukocytosis. Urinalysis was positive for nitrates. Chest x-ray was negative for any acute cardiopulmonary disease. The patient was started on empiric ceftriaxone, first dose was given , and the patient was transferred to the floor for further management. ADMITTING DIAGNOSES: 1. Unintentional weight loss. 2. Urinary tract infection. 3. Generalized weakness. HOSPITAL COURSE: Infectious Disease doctor, patrol captain, and psychiatrist were involved in the care of this patient. Urine culture grew E. coli. The patient was on Levaquin for total of 5 days, - to be continued. Stool was positive for C. diff. The patient was started on oral Flagyl, continue for total of 2 weeks. Avoid Protonix or other PPI and Imodium as per ID recommendation. Generalized weakness was likely to combination of UTI and C. diff colitis. IV fluids provided. Wound care nurse seen the patient due to the right buttock stage IV , present on admission and recommended wound care, which needs to be continued in the [facility]. Patient with a known psychiatric history/major depression. Psychiatrist seen the patient for major depression and put her on Depakote, Risperdal, and Lamictal. Continue as outlined by psychiatrist. Her unintentional weight loss, most likely to be due to C. diff colitis. Dietary seen the patient. Dietary supplements ordered. TSH and HIV tests all negative. All consultants cleared the patient for discharge. FINAL DIAGNOSES: 1. Unintentional weight loss-multifactorial, likely 2 to C dif colitis 2. Urinary tract infection/Escherichia coli. 3. Clostridium diff colitis. 4. Right buttock stage IV, present on admission. 5. Major depression. DISCHARGE MEDICATIONS: See medication reconciliation list. Continue Levaquin for 3 more days and Flagyl for 11 more days as per ID recommendation. DISCHARGE INSTRUCTIONS: The patient was discharged to [facility]. Follow up with medical doctor at the facility. Sergio Negron D.O. I have been assigned to dictate discharge summary on this account and I was not involved in the patient's management. Rain Cardozayue NDavide DR: GAVIN JOB#: [id number] CC: GE
--- NOTE | 2016-08-27 03:12 | Cardiology Report ---
APPROVED REPORT EKG Measurement Heart [id number] Sinus tachycardia Inferior infarct, age undetermined Anterolateral infarct, age undetermined Abnormal ECG
== END 2016-07-29 21:55 | DRG 371 ==
LOC: ENRESERVDT → ENRESERVTM → EDBD 14:15 → EMR 14:38 → 4E 14:55 → EDBEDREQ 16:15 → 4E 17:14 → 4W 07-29 06:34
DX: A04.7 Enterocolitis due to Clostridium difficile (principal); G93.40 Encephalopathy, unspecified; L89.314 Pressure ulcer of right buttock, stage 4; E11.42 Type 2 diabetes mellitus with diabetic polyneuropathy; F03.90 Unspecified dementia, unspecified severity, without behavioral disturbance, psychotic disturbance, mood disturbance, and anxiety; L89.109 Pressure ulcer of unspecified part of back, unspecified stage; N39.0 Urinary tract infection, site not specified; R63.4 Abnormal weight loss; J44.9 Chronic obstructive pulmonary disease, unspecified; Z68.20 Body mass index [BMI] 20.0-20.9, adult; G40.909 Epilepsy, unspecified, not intractable, without status epilepticus; F32.9 Major depressive disorder, single episode, unspecified; R62.7 Adult failure to thrive; Z88.6 Allergy status to analgesic agent; B96.20 Unspecified Escherichia coli [E. coli] as the cause of diseases classified elsewhere; I10 Essential (primary) hypertension; D64.9 Anemia, unspecified; R26.9 Unspecified abnormalities of gait and mobility; Z79.4 Long term (current) use of insulin; F25.0 Schizoaffective disorder, bipolar type
CPT/HCPCS: 36415; 71010; 72131; 80048; 80053; 80061; 81003; 82550; 82553; 82962; 83036; 84443; 84484; 85025; 86592; 86703; 87045; 87081; 87086; 87181; 87493; 93005; 97803; J1815